=== PATIENT | female | born 1975 | race Caucasian/White ===

== ENCOUNTER 2020-08-07 12:13 | Emergency (ER) | payer OTHER, MEDICAID, SELFPAY ==
[2020-08-07 12:29] VITALS: BP 150/89; PULSE 79; RESP 18; TEMP 37.2; O2SAT 100; BMI 38.3
--- NOTE | 2020-08-07 12:32 | ED.LOWEXIN ---
HPI - Extremity Injury (Lower) General Chief Complaint: Extremity Injury, Lower Stated Complaint: Rt knee pain Time Seen by Provider: 08/07/20 12:31 Source: patient Mode of arrival: ambulatory Limitations: no limitations History of Present Illness HPI Narrative: 45 year old cassandra comes into ER with LE injury. Fell early this week, c/o pain to Right Knee and Left Ankle. She is ambulatory, but states weight bearing and any ROM is difficult. 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, went ot work this week after her fall and has noticed as the week has gone by that her pain is worse and weight bearing is almost impossible Onset (ago): day(s) (worseing over the past 2-3 days) Severity: mild (superficial) Severity scale (1-10): 2 Related Data Previous Rx's Medication Instructions Recorded naproxen [Naprosyn] 500 mg PO BID PRN #30 tab 08/07/20 prednisone 30 mg PO BID 5 Days #30 tab 08/07/20 Allergies Allergy/AdvReac Type Severity Reaction Status Date / Time No Known Allergies Allergy Verified 08/07/20 12:32 Review of Systems Constitutional: Constitutional: Reports fever(s) (subjective), Denies headache(s) and Denies weakness Eyes: Eyes: Denies change in vision and Denies eye pain ENT: Reports Normal hearing present, Denies headache(s) and Denies sore throat Cardiovascular: Cardiovascular: Denies chest pain, Denies palpitations and Denies dyspnea Respiratory: Respiratory: Denies chest congestion, Denies cough, Denies dyspnea and Denies wheezing Gastrointestinal: Gastrointestinal: Denies abdominal pain, Denies change in bowel habits, Denies constipation, Denies diarrhea, Denies nausea and Denies vomiting Genitourinary: Genitourinary: Denies urinary frequency, Denies dysuria, Denies flank pain and Denies urinary incontinence Musculoskeletal: Musculoskeletal: Reports abnormal gait (right knee pain), Denies back pain, Denies myalgias, Reports arthralgias, Denies muscle weakness, Reports radiating pain into limb (right knee, left ankle) and Reports stiffness Integumentary/Breasts: Skin/Breast: Denies change in hair, Denies pruritus, Denies erythema, Denies rash, Denies unusual bruising and Denies wounds Neurologic: Reports Normal hearing present, Reports Abnormal speech present, Reports abnormal gait (right knee pain), Denies headache(s), Denies memory loss, Denies paresthesias, Denies tremor(s) and Denies weakness Psychiatric: Psychiatric: Denies anxiety, Denies depression, Denies irritability and Denies memory loss Endocrine: Endocrine: Denies change in body appearance and Denies palpitations Hematologic/Lymphatic: Hematologic/Lymphatic: Denies easy bleeding, Denies easy bruising and Denies lymphadenopathy Allergic/Immunologic: Allergic/Immunologic: Denies wheezing [facility] [place] Social History Social History Advance Directives: No Advance Directives Information Provided: Yes Physical Exam Vital Signs: Vital Signs: Last Vital Signs Temp 99.0 F 08/07/20 12:29 Pulse 79 08/07/20 12:29 Resp 18 08/07/20 12:29 BP 150/89 H 08/07/20 12:29 Pulse Ox 100 08/07/20 12:29 Body Mass Index 38.3 Const: General: cooperative, healthy appearing, comfortable, no acute distress, well developed, alert, awake and well groomed Nutritional Appearance: average body habitus Orientation/consciousness: patient oriented x3 Limitations: no limitations HENMT: Head: Yes normal to inspection Ears: hearing grossly normal bilaterally, external ears normal, TM's normal bilaterally, mastoids normal and other (FROM MASS NOTED AT TMJ AREA, TENDER TO PALPATION. NO ERYTHEMA, NO DRAINAGE) Eyes: General: appearance normal, both eyes and all related structures Neck: Other: FIRM MASS NOTED AT RIGHT TMJ REGION, TENDER TO PALPATION Neck: Yes full ROM, Yes no meningeal signs, Yes trachea midline, Yes supple, Yes bilateral parotid enlargement, No lymphadenopathy and Yes tender Thyroid: Thyroid normal Lymphatic: no lymphadenopathy noted Chest: Chest palpation & inspection: normal inspection of the chest and normal palpation of entire chest wall Resp: Effort & Inspection: normal respiratory effort and able to speak in complete sentences Auscultation: clear to auscultation bilaterally, no crackles, no rales, no rhonchi and no wheezes Cardio: Rate: regular rate Rhythm: regular rhythm GI: Inspection: Yes normal to inspection : General: Yes no CVA tenderness Back/Spine/Pelvis: Back: no CVA tenderness Cervical Spine: normal cervical lordosis and cervical ROM normal Thoracic/Lumbar Spine: thoracic and lumbar spine normal to inspection Skin: General skin exam: no rashes or lesions noted Lesions: no lesions Rashes: no rashes Neuro: General: patient oriented x3 and no meningeal signs Cranial nerves: Yes Normal hearing present Cognition (Neuro): normal cognition Speech: Abnormal speech present Gait exam (Neuro): Normal gait present Motor exam (neuro): 5/5 motor strength present throughout Sensory Exam: Normal double simultaneous stimulation for sensation Extrem: General: No full ROM, No normal gait (limping gait), No calf tenderness, Yes edema (left ankle with mild ecchymosis) and Yes Limp noted Psych: Appearance: grossly normal Mental Status: mental status grossly normal Speech and movement: Normal speech and movement present Affect: normal affect Attitude: cooperative Thought process: Normal thought process present Thought content: Normal thought content present Insight: Good insight present (Psych) Judgement: Good judgement present (Psych) Course Course Course Narrative: 45 yeaer old with pain during ambulation to left ankle and right knee s/p fall. Xrays pending MDM - Extremity Injury (Lower) Imaging Data Knee x-ray: Radiologist's impression: [address] [address] XRay Report Signed Patient: Nikki RenMR#: [id number] : 1975Acct:[id number] Age/Sex: 45 / FADM Date: 08/07/20 Loc: .ED Attending Dr: Ordering Physician: BETY WATSON Date of Service: 08/07/20 Procedure(s): XR knee RT 4V Accession Number(s): [id number] cc: BETY WATSON~ EXAMINATION: XR knee RT 4V, XR ankle LT min 3V CLINICAL INFORMATION: Status post fall with pain and swelling. COMPARISON: None. TECHNIQUE: Right knee 4 views. Left ankle 3 views. FINDINGS: RIGHT KNEE: No fracture or other acute abnormality is seen. No joint effusion is evident. Moderate to severe degenerative changes are present in the lateral compartment with moderate degenerative changes in the medial and patellofemoral compartments. LEFT ANKLE: No fracture, malalignment or other bony abnormality. No joint effusion. Spurring is seen on the posterior aspect of the calcaneus at the insertion of the Achilles tendon and plantar fascia. XR/XR knee RT 4V IMPRESSION: 1. Degenerative changes right knee with no acute abnormality demonstrated. 2. Unremarkable left ankle. Dictated By:Hamzah BRENNER MD Signed By:<Electronically signed by Hamzah BRENNER MD in OV>08/07/20 1357 DD/ 1245 TD/TT: Clinical Support Nurse: FELIPA Discharge Plan Discharge Clinical Impression: Ankle sprain and strain, Knee sprain, Osteoarthritis Patient Disposition: Home, Self-Care Instructions: Ankle Sprain (ED), Knee Sprain (ED) Additional Instructions: Please see your PCP for referral to [facility] for management of your Osteoarthritis if pain continues Prescriptions: New prednisone 10 mg tablet 30 mg PO BID 5 Days Qty: 30 RF: 0 naproxen [Naprosyn] 500 mg tablet 500 mg PO BID PRN (Reason: pain) Qty: 30 RF: 0
--- NOTE | 2020-08-07 12:44 | PC.NURSE ---
SEEN BY MLP AT THIS TIME
--- NOTE | 2020-08-07 12:45 | XR_ITS ---
EXAMINATION: XR knee RT 4V, XR ankle LT min 3V CLINICAL INFORMATION: Status post fall with pain and swelling. COMPARISON: None. TECHNIQUE: Right knee 4 views. Left ankle 3 views. FINDINGS: RIGHT KNEE: No fracture or other acute abnormality is seen. No joint effusion is evident. Moderate to severe degenerative changes are present in the lateral compartment with moderate degenerative changes in the medial and patellofemoral compartments. LEFT ANKLE: No fracture, malalignment or other bony abnormality. No joint effusion. Spurring is seen on the posterior aspect of the calcaneus at the insertion of the Achilles tendon and plantar fascia. XR/XR ankle LT min 3V IMPRESSION: 1. Degenerative changes right knee with no acute abnormality demonstrated. 2. Unremarkable left ankle.
--- NOTE | 2020-08-07 12:45 | XR_ITS ---
EXAMINATION: XR knee RT 4V, XR ankle LT min 3V CLINICAL INFORMATION: Status post fall with pain and swelling. COMPARISON: None. TECHNIQUE: Right knee 4 views. Left ankle 3 views. FINDINGS: RIGHT KNEE: No fracture or other acute abnormality is seen. No joint effusion is evident. Moderate to severe degenerative changes are present in the lateral compartment with moderate degenerative changes in the medial and patellofemoral compartments. LEFT ANKLE: No fracture, malalignment or other bony abnormality. No joint effusion. Spurring is seen on the posterior aspect of the calcaneus at the insertion of the Achilles tendon and plantar fascia. XR/XR knee RT 4V IMPRESSION: 1. Degenerative changes right knee with no acute abnormality demonstrated. 2. Unremarkable left ankle.
== END 2020-08-07 14:23 | disposition home or self-care (01) ==
PROVIDERS: Emergency Provider Emergency Medicine; PCP Internal Medicine
DX: M17.0 Bilateral primary osteoarthritis of knee (principal); M25.562 Pain in left knee; M25.561 Pain in right knee; M25.572 Pain in left ankle and joints of left foot; M25.571 Pain in right ankle and joints of right foot; Z79.899 Other long term (current) drug therapy
CPT/HCPCS: 73564; 73610; 99283

== ENCOUNTER 2020-12-13 14:16 | Inpatient (IN) | payer SELFPAY ==
[2020-12-13] VITALS (12 sets, daily range): BP systolic 148–193; BP diastolic 80–112; PULSE 74–103; RESP 14–22; TEMP 36.4–37.2; O2SAT 95–99; BMI 86.3; BMI 38.6
--- NOTE | ~2020-12-13 | CT_ITS ---
EXAMINATION: CT ABDOMEN AND PELVIS WITH CONTRAST CLINICAL INFORMATION: abd pain worsening; pancreatitis COMPARISON: 12/13/2020 TECHNIQUE: Multidetector volumetric images were obtained from the superior aspect of the liver through the pubic symphysis following administration 85 mL of Omnipaque 350 intravenous contrast. Sagittal and coronal reformatted images were obtained on the technologist's workstation. Oral contrast: No This CT examination was performed using dose optimization techniques as appropriate, variously including the following: *Automated exposure control *Adjustment of mA and/or kV according to patient size (this includes techniques or standardized protocols for targeted exams where dose is matched to indication/reason for exam; i.e. extremities or head) *Use of iterative reconstruction technique DLP: 882 mGy-cm FINDINGS: LUNG BASES: The visualized lung bases are unremarkable. LIVER, GALLBLADDER, AND BILIARY TREE: Relative hypoattenuation of the hepatic parenchyma is consistent with steatosis, similar to prior. Liver is enlarged, measuring 21 cm craniocaudal. Contour is normal. No focal bony lesions are identified. The gallbladder is unremarkable with no evidence of radiopaque gallstones, gallbladder wall thickening, or obvious pericholecystic inflammatory changes. PANCREAS: As seen on the recent CT, there is decreased enhancement of the pancreatic body and head with surrounding fat stranding, consistent with acute pancreatitis. The fat stranding and inflammatory changes in the mesentery. Increased as compared to prior. The fat stranding extends distally with trace fluid in the right anterior pararenal fascia as on the prior study. No discrete fluid collections. There is increased mass effect upon the adjacent main portal vein and superior mesenteric vein (coronal image 41/102 of series 7) as well as mild narrowing of the splenic vein near the amol splenic confluence. No occlusion. SPLEEN: Unremarkable. ADRENAL GLANDS: Unremarkable. KIDNEYS AND URETERS: The kidneys are normal in size, shape, and attenuation. No hydronephrosis, hydroureter, or calculi seen. No perinephric stranding. BLADDER: Unremarkable. GASTROINTESTINAL TRACT: Stomach, small bowel, and colon are normal in caliber. No bowel wall thickening. Trace fluid in the pelvis dependently. No intraperitoneal free air. ABDOMINAL WALL: No significant hernia is appreciated. LYMPH NODES: Normal. VASCULAR: As noted above, inflammatory changes around the pancreas producing increased mass effect upon the SMV, portal vein, and splenic vein without occlusion or thrombosis. Abdominal aorta and its branches are normal. PELVIC VISCERA: The uterus and adnexa are unremarkable. OSSEOUS STRUCTURES: Mild degenerative spondylosis in the lumbar spine. No acute osseous abnormalities. CT/CT abdomen pelvis w con IMPRESSION: Acute pancreatitis with increased peripancreatic inflammatory changes with the prior. There is increased mass effect on the portal vasculature with mild narrowing of the SMV, main portal vein, and splenic vein around the portosplenic confluence. No thrombosis or occlusion. Hepatic steatosis.
--- NOTE | ~2020-12-13 | CT_ITS ---
EXAMINATION: CT ABDOMEN AND PELVIS WITH CONTRAST CLINICAL INFORMATION: Abdominal pain, nausea and vomiting COMPARISON: None TECHNIQUE: Multidetector volumetric images were obtained from the superior aspect of the liver through the pubic symphysis following administration 100 mL of Omnipaque 350 intravenous contrast. Sagittal and coronal reformatted images were obtained on the technologist's workstation. Oral contrast: Yes This CT examination was performed using dose optimization techniques as appropriate, variously including the following: *Automated exposure control *Adjustment of mA and/or kV according to patient size (this includes techniques or standardized protocols for targeted exams where dose is matched to indication/reason for exam; i.e. extremities or head) *Use of iterative reconstruction technique DLP: 1284 mGy-cm FINDINGS: LUNG BASES: The visualized lung bases are unremarkable. LIVER, GALLBLADDER, AND BILIARY TREE: The liver is low in attenuation suggestive of fatty infiltration. Liver is normal in contour and size. No focal liver lesion is seen. The gallbladder is normal-appearing. There are no gallstones. There is no intra extrahepatic biliary duct dilatation. PANCREAS: There is decreased enhancement of the head and body of the pancreas and stranding of the surrounding fat and a small amount of fluid in the right anterior pararenal fascia and small bowel mesentery. Findings are suggestive of acute pancreatitis. No pancreatic duct dilatation is seen. SPLEEN: There is a small 8 mm low-attenuation lesion in the inferior spleen probably representing a cyst.. ADRENAL GLANDS: Unremarkable. KIDNEYS AND URETERS: The kidneys are normal in size, shape, and attenuation. No hydronephrosis, hydroureter, or calculi seen. No perinephric stranding. BLADDER: Unremarkable. GASTROINTESTINAL TRACT: The small and large bowel are unremarkable. The appendix is unremarkable. ABDOMINAL WALL: No significant hernia is appreciated. LYMPH NODES: Normal. VASCULAR: Unremarkable. PELVIC VISCERA: Unremarkable. OSSEOUS STRUCTURES: There are mild degenerative changes of the spine. CT/CT abdomen pelvis w con IMPRESSION: Acute pancreatitis. Fatty liver.
[2020-12-13] MEDS: HYDROmorphone HCl 1 MG/ML SYRINGE IM (14:58)
--- NOTE | 2020-12-13 15:04 | ED.ABDPAIN ---
HPI - Abdominal Pain General Chief Complaint: Abdominal Pain Stated Complaint: ABD PAIN Time Seen by Provider: 12/13/20 14:31 Source: patient Mode of arrival: ambulatory Limitations: no limitations History of Present Illness HPI narrative: 45 y/o female with history of HTN, daily ETOH abuse, daily IV heroin abuse who presents to the ED with acute onset of 10/10 sharp abdominal pain associated with nausea and vomiting. She has never had abdominal pain like this before. It is non-radiating and in the center of her abdomen and epigastric areas. Her back hurts when she lays down. She states she drank her usual whiskey last night, maybe too much but would quantify aside from a lot. She states her last IV heroin use was yesterday. She bought some methadone from a friend and took that today. She used to be in a methadone program but lost her insurance last year. She has been drinking daily for the last 5 years or so. No history of withdrawal. No fever, chills, diarrhea, constipation, cough, SOB or chest pain. MD elicited complaint: abdominal pain Onset (ago): hour(s) (5) Pain Consistency: constant Location: epigastric and periumbilical Severity: severe Pain scale (0-10): 10 Quality: stabbing and sharp Radiation: none Migration to: no migration Exacerbating factors: vomiting Relieving factors: nothing Associated symptoms: nausea and vomiting Related Data Previous Rx's Medication Instructions Recorded naproxen [Naprosyn] 500 mg PO BID PRN #30 tab 08/07/20 prednisone 30 mg PO BID 5 Days #30 tab 08/07/20 Allergies Allergy/AdvReac Type Severity Reaction Status Date / Time No Known Allergies Allergy Verified 12/13/20 14:36 Review of Systems Review of Systems Constitutional: No Fever, No Chills ENT/Mouth: No sore throat, No Rhinorrhea, No Swallowing Difficulty Eyes: No Eye Pain, No Swelling, No Redness Cardiovascular: No Chest Pain, No SOB, No Orthopnea, No Edema Respiratory: No Cough, No Sputum, No Wheezing, No dyspnea Gastrointestinal: + Nausea,+ Vomiting, No Diarrhea, + abdominal Pain, No Hematochezia, No Melena Genitourinary: No Dysuria, No Urinary Frequency, No Hematuria Musculoskeletal: + joint pain, + Myalgias Skin: No Skin Lesions, No rash Neuro: No Weakness, No Numbness, No Dizziness, No Headache Psych: + Anxiety/Panic, + Depression Heme/Lymph: No Bruising, No Lymphadenopathy Endocrine: No Polyuria, No Polydipsia Physical Exam Vital Signs: Vital Signs: Last Vital Signs Temp 97.7 F 12/13/20 14:30 Pulse 83 12/13/20 14:30 Resp 22 H 12/13/20 16:47 BP 158/92 H 12/13/20 14:30 Pulse Ox 99 12/13/20 14:30 Body Mass Index 86.3 Appearance: middle aged female dry heaving and vomiting at the side of the bed, appears uncomfortable and in pain Eyes: Pupils equal, round and reactive to light. ENT: Normal external inspection Neck: Normal inspection. Neck supple. CVS: Normal heart rate and rhythm. Pulses normal. Respiratory: No respiratory distress. Breath sounds normal. Abdomen: Obese, soft with epigastric and periumbilical tenderness, mild RUQ tenderness without rebound or guarding. +BS x4 Skin: Skin cool and clammy. Normal skin color. Normal skin turgor. No rashes. Extremities: No lower extremity edema. Bilateral upper extremities with track quick and ecchymosis consistent with hx IVDA Neuro: Oriented X 3. Moving all 4 extremities spontaneously, unable to assess strength/sensation due to vomiting & severe pain Course Course Course Narrative: 45 y/o female with history of ETOH and heroin abuse presenting with acute onset of epigastric abdominal pain, nausea and vomiting. Last drink was last night. Concern for alcohol induced pancreatitis. Will get labs and CT scan for further evaluation. Difficult IV access - IM meds ordered for now. US PIV to be attempted now. Reevaluation(s) Reevaluation #1: Lipase elevated 1200 with lactic acid 3.4. Likely due to dehydation and vomiting, NOT sepsis. No leukocytosis or fevers. CT scan pending to assess for necrosis, pseudocyst or fluid collection. Will hold off on IV antibiotics for now. 2L IVF ordered as well as additional dilaudid for pain control. Patient informed of results and need for admission to the hospital. Reevaluation #2: CT scan showing acute pancreatitis. No GB stones. Spoke with Elenita Hernández who will admit to the hospital. MDM - Abdominal Pain Lab Data Result diagrams: 12/13/20 15:10 12/13/20 15:10 Labs: Lab Results 12/13/20 12/13/20 12/13/20 Range/Units 15:10 15:10 15:10 WBC 10.2 (4.8-10.8) X10*3/uL RBC 5.03 (4.20-5.50) X10*6/uL Hgb 15.5 (12.0-16.0) g/dl Hct 46.3 (37-47) % MCV 92.0 (80-98) fL MCH 30.8 (27.0-33.0) pg MCHC 33.5 (31.0-35.0) g/dl RDW 13.0 (11.0-16.0) % Plt Count 144 L (160-400) X10*3/uL MPV 13.7 H (9.4-12.3) fL Immature Gran % (Auto) 0.4 (0.0-0.4) % Neut % (Auto) 77.3 H (45-73) % Lymph % (Auto) 15.8 L (20-40) % [place] % (Auto) 3.9 (2-11) % Eos % (Auto) 2.0 (0-4) % Baso % (Auto) 0.6 (0-2) % Lymph # (Auto) 1.6 (1.2-4.9) X10*3/uL [place] # (Auto) 0.4 (0.1-1.2) X10*3/uL Eos # (Auto) 0.2 (0.0-0.4) X10*3/uL Baso # (Auto) 0.1 (0.0-0.2) X10*3/uL Abs Immat Gran (auto) 0.04 H (0.00-0.03) X10*3/uL Absolute Neuts (auto) 7.9 (2.0-8.3) X10*3/uL Absolute Nucleated RBC 0.000 (0.0-0.012) X10*3/uL Nucleated RBC % (auto) 0.0 (0.0-0.2) /100WBC Smear Tech's Comments VERIFIED Sodium 139 (135-145) mmol/L Potassium 3.9 (3.3-5.1) mmol/L Chloride 97 (96-108) mmol/L Carbon Dioxide 27 (22-29) mmol/L Anion Gap 19 (12-20) BUN 15 (9-16) mg/dL Creatinine 1.00 (0.5-1.4) mg/dL Estim Creat Clear Calc 150.4 Estimated GFR 59 Random Glucose 146 H (60-115) mg/dL Lactic Acid 3.4 H* (0.5-2.0) mmol/L Calcium 9.5 (8.4-10.2) mg/dL Magnesium 1.7 (1.6-2.6) mg/dL Total Bilirubin 0.8 (0.0-1.0) mg/dL Direct Bilirubin 0.2 (0.0-0.5) mg/dL AST 61 H (5-31) U/L ALT 48 H (0-31) U/L Alkaline Phosphatase 83 (39-117) U/L Lactate Dehydrogenase 150 (122-220) U/L C-Reactive Protein 0.86 H (< or = 0.50) mg/dL Total Protein 7.6 (6.5-8.0) g/dL Albumin 4.2 (3.5-5.0) g/dL Lipase 1254 H (8-78) U/L Ethyl Alcohol mg/dL 12/13/20 Range/Units 15:10 WBC (4.8-10.8) X10*3/uL RBC (4.20-5.50) X10*6/uL Hgb (12.0-16.0) g/dl Hct (37-47) % MCV (80-98) fL MCH (27.0-33.0) pg MCHC (31.0-35.0) g/dl RDW (11.0-16.0) % Plt Count (160-400) X10*3/uL MPV (9.4-12.3) fL Immature Gran % (Auto) (0.0-0.4) % Neut % (Auto) (45-73) % Lymph % (Auto) (20-40) % [place] % (Auto) (2-11) % Eos % (Auto) (0-4) % Baso % (Auto) (0-2) % Lymph # (Auto) (1.2-4.9) X10*3/uL [place] # (Auto) (0.1-1.2) X10*3/uL Eos # (Auto) (0.0-0.4) X10*3/uL Baso # (Auto) (0.0-0.2) X10*3/uL Abs Immat Gran (auto) (0.00-0.03) X10*3/uL Absolute Neuts (auto) (2.0-8.3) X10*3/uL Absolute Nucleated RBC (0.0-0.012) X10*3/uL Nucleated RBC % (auto) (0.0-0.2) /100WBC Smear Tech's Comments Sodium (135-145) mmol/L Potassium (3.3-5.1) mmol/L Chloride (96-108) mmol/L Carbon Dioxide (22-29) mmol/L Anion Gap (12-20) BUN (9-16) mg/dL Creatinine (0.5-1.4) mg/dL Estim Creat Clear Calc Estimated GFR Random Glucose (60-115) mg/dL Lactic Acid (0.5-2.0) mmol/L Calcium (8.4-10.2) mg/dL Magnesium (1.6-2.6) mg/dL Total Bilirubin (0.0-1.0) mg/dL Direct Bilirubin (0.0-0.5) mg/dL AST (5-31) U/L ALT (0-31) U/L Alkaline Phosphatase (39-117) U/L Lactate Dehydrogenase (122-220) U/L C-Reactive Protein (< or = 0.50) mg/dL Total Protein (6.5-8.0) g/dL Albumin (3.5-5.0) g/dL Lipase (8-78) U/L Ethyl Alcohol < 10 mg/dL Critical Care Time Critical Care Time Critical Care Time: Yes Total Critical Care Time: 40 Attestation: I attest critical care time for this patient with acute pancreatitis, lactic acidosis and severe abdominal pain requiring multiple doses of IV narcotics - frequent reassessment of cardiopulmonary status and pain. Records and imaging reviewed. Discharge Plan Discharge Clinical Impression: Pancreatitis Qualifiers: Chronicity: acute Pancreatitis type: alcohol induced Acute pancreatitis complication: unspecified Qualified Code(s): K85.20 - Alcohol induced acute pancreatitis without necrosis or infection Patient Disposition: Admitted As Inpatient [facility] Past Medical History Medical History Alcohol abuse HTN (hypertension) Opiate addiction Social History Social History Alcohol intake: current Alcohol intake frequency: 3 or more drinks per day Alcohol type: hard liquor Smoking Status: Never smoker Use of substances other than those prescribed or required for medical reasons: Yes Substance Use Type: Crack/Cocaine and Heroin Advance Directives: No Advance Directives Information Provided: No
[2020-12-13] MEDS: 0.9 % Sodium Chloride 1,000 ML 999 ML IVCONT (15:15)
[2020-12-13 15:23] LABS: Imm Gran Abs Auto 0.04 X10*3/uL (0.00-0.03); Imm Gran Pct Auto 0.4 % (0.0-0.4); MANUAL DIFF FLAG SCAN; Monocytes Percent Auto 3.9 % (2-11); Platelet Count 144 X10*3/uL (160-400); SCAN SMEAR FLAG 1
[2020-12-13 15:25] LABS: Basophils Absolute Auto 0.1 X10*3/uL (0.0-0.2); Basophils Percent Auto 0.6 % (0-2); Eosinophils Absolute Auto 0.2 X10*3/uL (0.0-0.4); Hematocrit 46.3 % (37-47); Hemoglobin 15.5 g/dl (12.0-16.0); Lymphocytes Absolute Auto 1.6 X10*3/uL (1.2-4.9); Lymphocytes Percent Auto 15.8 % (20-40); Mean Corpuscular HGB Conc 33.5 g/dl (31.0-35.0); Mean Corpuscular Hemoglobin 30.8 pg (27.0-33.0); Mean Platelet Volume 13.7 fL (9.4-12.3); Monocytes Absolute Auto 0.4 X10*3/uL (0.1-1.2); Neutrophils Absolute Auto 7.9 X10*3/uL (2.0-8.3); Neutrophils Percent Auto 77.3 % (45-73); Red Blood Count 5.03 X10*6/uL (4.20-5.50); White Blood Count 10.2 X10*3/uL (4.8-10.8)
[2020-12-13] MEDS: LORazepam 2 MG/ML VIAL IVPUSH (15:28)
[2020-12-13 15:29] LABS: PLT ABN DIST 1
[2020-12-13 15:46] LABS: Lactic Acid 3.4 mmol/L (0.5-2.0)
[2020-12-13 15:51] LABS: SLIDE REVIEW VERIFIED
[2020-12-13 15:54] LABS: Ethanol < 10 mg/dL
[2020-12-13 16:07] LABS: Alanine Aminotransferase 48 U/L (0-31); Albumin Level 4.2 g/dL (3.5-5.0); Alkaline Phosphatase 83 U/L (39-117); Anion Gap 19 (12-20); Aspartate Amino Transferase 61 U/L (5-31); Bilirubin Direct 0.2 mg/dL (0.0-0.5); Bilirubin Total 0.8 mg/dL (0.0-1.0); Blood Urea Nitrogen 15 mg/dL (9-16); Calcium 9.5 mg/dL (8.4-10.2); Carbon Dioxide 27 mmol/L (22-29); Chloride 97 mmol/L (96-108); Creatinine Clr Calc Pharmacy 150.4; Estimated Glomerular Filt Rate 59; Glucose Random 146 mg/dL (60-115); Magnesium 1.7 mg/dL (1.6-2.6); Potassium 3.9 mmol/L (3.3-5.1); Sodium 139 mmol/L (135-145); Total Protein 7.6 g/dL (6.5-8.0)
[2020-12-13 16:17] LABS: Lipase 1254 U/L (8-78)
[2020-12-13] MEDS: iohexoL 350 MG/ML 100 ML INFUS..BTL IV (16:30)
[2020-12-13 16:39] LABS: C Reactive Protein 0.86 mg/dL (< or = 0.50)
[2020-12-13] MEDS: HYDROmorphone HCl 1 MG/ML SYRINGE IVPUSH (16:47)
[2020-12-13 16:59] LABS: Lactate Dehydrogenase 150 U/L (122-220)
[2020-12-13 17:15] LABS: Reflex Lactate? Lactic Acid Added
[2020-12-13] MEDS: Magnesium Sulfate/D5W 1 GM/100 ML PIGGYBACK IV (17:15)
[2020-12-13 17:21] LABS: Glucose Urine UA NEG (NEG); Leukocyte Esterase Urine NEG (NEG); Nitrite Urine NEG (NEG); Specific Gravity - Urine 1.015 (1.005-1.025); Urine Blood NEG (NEG); Urine Ketones NEG (NEG); Urine Protein NEG (NEG-TRACE)
[2020-12-13 17:22] LABS: Appearance Urine CLEAR; Color Urine COLORLESS
--- NOTE | 2020-12-13 17:30 | PM.IMHP ---
History of Present Illness Date of Service: 12/13/20 Chief Complaint: Abdominal pain 45-year-old woman presented to the ER complaints of abdominal pain that started yesterday. She reports that her symptoms started abruptly. She did have some nausea and an episode vomiting today. She reports that she drinks 3-4 glasses whiskey a day and uses 1 bundle of heroin day. She denied fever, chills, diarrhea. She denies any history of pancreatitis in the past. In the ER, abdominal CT showed acute pancreatitis with a liver. AST 61, ALT 48, lipase 1254. COVID negative. in the ER she was started on phenobarbital protocol, given 1 g of IV magnesium, 2 L of IV fluids, pain medication. Patient will be admitted for further management treatment of acute pancreatitis. Review of Systems Review of Systems: Denies any recent fever chills or decrease in appetite respiratory denies any shortness of breath coverage production cardiovascular is adjustment of any PND or edema gastrointestinal See HPI genitourinary denies any dysuria frequency or hematuria musculoskeletal denies any joint pain or swelling neuropsych denies any weakness or seizures all other systems reviewed are negative [facility] Medical History Alcohol abuse HTN (hypertension) Opiate addiction Social History Alcohol intake: current Alcohol intake frequency: 3 or more drinks per day Alcohol type: hard liquor Smoking Status: Never smoker Use of substances other than those prescribed or required for medical reasons: Yes Substance Use Type: Crack/Cocaine and Heroin Advance Directives: No Advance Directives Information Provided: No Meds Allergies Allergy/AdvReac Type Severity Reaction Status Date / Time No Known Allergies Allergy Verified 12/13/20 14:36 Active Medications: Current Medications Generic Name Dose Route Start Last Admin Trade Name Freq PRN Reason Stop Dose Admin Magnesium Sulfate/Dextrose 1 gm in 100 mls @ 100 mls/hr 12/13/20 17:02 12/13/20 17:15 IV 12/13/20 18:01 100 mls/hr ONCE ONE Administration Pharmacy Consult 1 each 12/13/20 16:54 Consult Rx Etoh Phenob Dosing MISCELLANE 12/13/20 16:55 ONCE ONE Protocol Home Medications Medication Instructions Recorded Confirmed Last Taken Type No Known Home Meds 12/13/20 12/13/20 Unknown History Physical Exam Vital Signs and Narrative: Vital Signs: Last Vital Signs Temp 97.8 F 12/13/20 17: Pulse 74 12/13/20 17: Resp 18 12/13/20 17: BP 189/112 H 12/13/20 17:21 Pulse Ox 97 12/13/20 17:21 Body Mass Index 86.3 Appearing in no acute distress head is normocephalic atraumatic eyes pupils are PERRLA sclera is anicteric mouth throat mucous membranes are intact and moist neck is supple no lymphadenopathy, no JVD noted lung sounds are clear to auscultation heart regular rate rhythm, clear S1, S2 positive bowel sounds, abdomen tender, obese neuro patient is alert x3, no focal deficits Results Labs CBC and Chem 7: 12/13/20 15:10 12/13/20 15:10 Labs: Laboratory Results - last 24 hr 12/13/20 12/13/20 12/13/20 15:10 15:10 15:10 MCV 92.0 MCH 30.8 MCHC 33.5 RDW 13.0 Plt Count 144 L MPV 13.7 H Immature Gran % (Auto) 0.4 Neut % (Auto) 77.3 H Lymph % (Auto) 15.8 L [place] % (Auto) 3.9 Eos % (Auto) 2.0 Baso % (Auto) 0.6 Lymph # (Auto) 1.6 [place] # (Auto) 0.4 Eos # (Auto) 0.2 Baso # (Auto) 0.1 Abs Immat Gran (auto) 0.04 H Absolute Neuts (auto) 7.9 Absolute Nucleated RBC 0.000 Nucleated RBC % (auto) 0.0 Smear Tech's Comments VERIFIED Anion Gap 19 Estim Creat Clear Calc 150.4 Estimated GFR 59 Random Glucose 146 H Lactic Acid 3.4 H* Calcium 9.5 Magnesium 1.7 Total Bilirubin 0.8 Direct Bilirubin 0.2 AST 61 H ALT 48 H Alkaline Phosphatase 83 Lactate Dehydrogenase 150 C-Reactive Protein 0.86 H Total Protein 7.6 Albumin 4.2 Lipase 1254 H Urine Color Urine Appearance Urine pH Ur Specific [place] Urine Protein Urine Glucose (UA) Urine Ketones Urine Blood Urine Nitrite Ur Leukocyte Esterase Ethyl Alcohol 12/13/20 12/13/20 15:10 17:05 MCV MCH MCHC RDW Plt Count MPV Immature Gran % (Auto) Neut % (Auto) Lymph % (Auto) [place] % (Auto) Eos % (Auto) Baso % (Auto) Lymph # (Auto) [place] # (Auto) Eos # (Auto) Baso # (Auto) Abs Immat Gran (auto) Absolute Neuts (auto) Absolute Nucleated RBC Nucleated RBC % (auto) Smear Tech's Comments Anion Gap Estim Creat Clear Calc Estimated GFR Random Glucose Lactic Acid Calcium Magnesium Total Bilirubin Direct Bilirubin AST ALT Alkaline Phosphatase Lactate Dehydrogenase C-Reactive Protein Total Protein Albumin Lipase Urine Color COLORLESS Urine Appearance CLEAR Urine pH 8.0 Ur Specific [place] 1.015 Urine Protein NEG Urine Glucose (UA) NEG Urine Ketones NEG Urine Blood NEG Urine Nitrite NEG Ur Leukocyte Esterase NEG Ethyl Alcohol < 10 Imaging Radiologist's Impressions: Impressions Abdomen/Pelvis CT 12/13/20 14:47 IMPRESSION: Acute pancreatitis. Fatty liver. Assessment and Plan (1) Pancreatitis: Qualifiers: Acute pancreatitis complication: unspecified Chronicity: acute Pancreatitis type: alcohol induced Qualified Code(s): K85.20 - Alcohol induced acute pancreatitis without necrosis or infection Status: Acute 45-year-old woman admitted with acute pancreatitis with history of chronic alcohol abuse and heroin abuse. Patient developed abdominal pain yesterday with an episode of vomiting today, she denied history of pancreatitis in the past however she does drink quite heavily every day. She has also high risk for withdrawal and will be started on phenobarbital protocol. Acute pancreatitis. Secondary to heavy alcohol abuse. Drinks 3-4 glasses of whiskey on a daily basis. - aggressive IV fluid hydration with lactated Ringer's - pain medication - NPO for now, advance diet as tolerated. Hypertension. Patient reports history but not on any home medications. Received a dose of labetalol in the ER due to elevated blood pressure. Elevated blood pressures also related to pain. -consider adding antihypertensive -follow blood pressure closely. Transaminitis. Likely secondary to go alcohol abuse. -follow LFTs. Lactic acidosis. Likely secondary to alcohol abuse/dehydration. - trend, IV fluids. Alcohol abuse. -phenobarbital protocol Heroin abuse. Interested in Suboxone. -Consult Carmen Arias nurse-practitioner Obesity. BMI 86.3. Discussed the importance of weight reduction to avoid worsening other comorbidities. Case discussed with Dr. Miller Full code
[2020-12-13] MEDS: Labetalol HCL 100 MG/20 ML VIAL 10 MG IVPUSH (17:37)
[2020-12-13 17:43] LABS: COVID-19 Test Negative (Negative); IDNOW Serial# 9DD0AD1C
[2020-12-13 17:47] LABS: Amphetamine Screen Urine Not Detected (Not Detect); Barbiturates, Urine Not Detected (Not Detect); Benzodiazepines Screen Urine Not Detected (Not Detect); Cannabinoid Screen Urine Not Detected (Not Detect); Cocaine Screen Urine POSITIVE (Not Detect); Opiate Screen Urine Not Detected (Not Detect); Phencyclidine Screen Urine Not Detected (Not Detect)
[2020-12-13] MEDS: PHENobarbitaL sodium 130 MG/ML VIAL 197 MG IM (17:56)
[2020-12-13 18:05] LABS: ~Lactic Acid-LAB USE ONLY 2.6 mmol/L (0.5-2.0)
[2020-12-13] MEDS: Morphine Sulfate 4 MG/ML CARTRIDGE 2 MG IVPUSH ×2 (18:28→22:52)
[2020-12-13] MEDS: Lactated Ringers 1,000 ML 200 ML IVCONT (18:36)
[2020-12-13] MEDS: Enoxaparin Sodium 40 MG/0.4 ML SYRINGE SUBCUT (18:55)
--- NOTE | 2020-12-13 18:57 | P.EN_ITS ---
Event Note Date of Service: 12/14/20 Event Note: addendum to H+P by JOSSELYN Hernández I interviewed and examined the patient. I discussed their presentation and management with the mid-level provider. I reviewed the history and physical and agree with the documentation, with the following additions and corrections: 45yo F with EtOH + heroin abuse presenting with 1d of worsening periumbilical pain, found to have acute pancreatitis, no prior hx on exam, BP 190/103, lungs clear, marked periumbilical/epigastric tenderness, zero Watton's criteria on admission plan admit to M/S, give IV fluids, IV morphine prn pain, consult psych re: suboxone (pt prev on methadone but then lost insurance)
[2020-12-13 19:38] LABS: Reflex Lactate? 2 Y
[2020-12-13 20:21] LABS: ~Lactic Acid-LAB USE ONLY 2.6 mmol/L (0.5-2.0)
--- NOTE | 2020-12-13 20:30 | PC.NURSE ---
Tried to call report to [facility]. Awaiting phonecall back.
--- NOTE | 2020-12-13 20:41 | PC.NURSE ---
report called to Yanely [facility]
[2020-12-13] MEDS: oxyCODONE HCl Immed Release 5 MG TABLET PO (21:56)
[2020-12-13] MEDS: PHENobarbitaL sodium 130 MG/ML VIAL 148 MG IM (21:57)
[2020-12-13] MEDS: Melatonin 3 MG TABLET 6 MG PO (22:59)
[2020-12-14] VITALS (7 sets, daily range): BP systolic 158–206; BP diastolic 86–102; PULSE 78–88; RESP 18–20; TEMP 36.2–37.4; O2SAT 95–98; BMI 38.6
[2020-12-14] MEDS: Lactated Ringers 1,000 ML 200 ML IVCONT ×4 (00:12→17:40)
[2020-12-14] MEDS: PHENobarbitaL sodium 130 MG/ML VIAL 148 MG IM (00:42)
[2020-12-14] MEDS: Morphine Sulfate 4 MG/ML CARTRIDGE 2 MG IVPUSH ×3 (02:33→09:21)
[2020-12-14] MEDS: oxyCODONE HCl Immed Release 5 MG TABLET PO ×2 (04:37→11:04)
[2020-12-14] MEDS: Acetaminophen 325 MG TABLET 650 MG PO (04:42)
[2020-12-14 07:32] LABS: Basophils Percent Auto 0.1 % (0-2); Eosinophils Percent Auto 0.1 % (0-4); Hematocrit 41.5 % (37-47); Imm Gran Abs Auto 0.07 X10*3/uL (0.00-0.03); Imm Gran Pct Auto 0.5 % (0.0-0.4); Lymphocytes Absolute Auto 0.7 X10*3/uL (1.2-4.9); Lymphocytes Percent Auto 4.8 % (20-40); MANUAL DIFF FLAG SCAN; Mean Corpuscular HGB Conc 33.7 g/dl (31.0-35.0); Mean Corpuscular Volume 91.8 fL (80-98); Monocytes Absolute Auto 0.6 X10*3/uL (0.1-1.2); Monocytes Percent Auto 4.2 % (2-11); Neutrophils Absolute Auto 12.9 X10*3/uL (2.0-8.3); Neutrophils Percent Auto 90.3 % (45-73); Platelet Count 113 X10*3/uL (160-400); Red Blood Count 4.52 X10*6/uL (4.20-5.50); Red Cell Distribution Width 13.1 % (11.0-16.0); SCAN SMEAR FLAG 1; White Blood Count 14.3 X10*3/uL (4.8-10.8)
[2020-12-14 07:53] LABS: Alanine Aminotransferase 34 U/L (0-31); Albumin Level 3.7 g/dL (3.5-5.0); Alkaline Phosphatase 73 U/L (39-117); Anion Gap 15 (12-20); Aspartate Amino Transferase 36 U/L (5-31); Bilirubin Direct 0.5 mg/dL (0.0-0.5); Bilirubin Total 1.6 mg/dL (0.0-1.0); Blood Urea Nitrogen 9 mg/dL (9-16); Calcium 8.4 mg/dL (8.4-10.2); Carbon Dioxide 26 mmol/L (22-29); Chloride 96 mmol/L (96-108); Creatinine Clr Calc Pharmacy 124.6; Estimated Glomerular Filt Rate > 60; Glucose Random 127 mg/dL (60-115); Potassium 3.9 mmol/L (3.3-5.1); Sodium 133 mmol/L (135-145); Total Protein 6.5 g/dL (6.5-8.0)
[2020-12-14 07:59] LABS: SLIDE REVIEW VERIFIED
[2020-12-14 08:23] LABS: Magnesium 1.8 mg/dL (1.6-2.6)
[2020-12-14] MEDS: PHENobarbitaL 15 MG TABLET 45 MG PO ×2 (09:04→20:07)
[2020-12-14] MEDS: 0.9 % Sodium Chloride Flush 3 ML SYRINGE IVFLUSH ×3 (09:06→20:08)
[2020-12-14] MEDS: Morphine Sulfate 4 MG/ML CARTRIDGE IVPUSH ×3 (11:46→15:52)
--- NOTE | 2020-12-14 13:08 | PC.NURSE ---
Pt. with 07/10 abd. pain, increased dose and frequency of IV Morphine, Morphine seems to help but pt. constantly asking for it to be given early, new IV placed in L forearm, LR @ 200mL/hr, pt. OOB with standby assist, will continue to monitor
--- NOTE | 2020-12-14 13:24 | P.PNIM_ITS ---
Subjective Subjective Date of Service: 12/14/20 Interval History: severe abd pain no N/V BP elevated no chest pain Physical Exam Vital Signs: Vital Signs: Last Vital Signs Temp 99.3 F 12/14/20 07:56 Pulse 87 12/14/20 07:56 Resp 19 12/14/20 07:56 BP 156/84 H 12/13/20 23:45 Pulse Ox 95 12/14/20 07:56 Body Mass Index 38.6 Gen: in pain HEENT: sclera anicteric, moist mucus membranes Neck: supple Lungs: clear to auscultation bilaterally Heart: regular rate and rhythm, no murmurs Abd: soft, markedly tender epigastrium Ext: no edema Skin: warm/well-perfused Neuro: alert and oriented x3, no focal findings Psych: appropriate affect Objective Data Current Medications Generic Name Dose Route Start Last Admin Trade Name Freq PRN Reason Stop Dose Admin Acetaminophen 650 mg 12/13/20 17:59 12/14/20 04:42 Acetaminophen 325 Mg Tablet PO 650 mg Q6H PRN Administration Pain, Mild (Pain Scale 1-3) Enoxaparin Sodium 40 mg 12/13/20 18:45 12/13/20 18:55 Enoxaparin Sodium 40 Mg/0.4 Ml Syringe SUBCUT 40 mg Q24H MICH Administration Lactated Ringer's 1,000 mls @ 200 mls/hr 12/13/20 18:00 12/14/20 11:48 Lr IVCONT 200 mls/hr .Q5H MICH Administration Medication 1 each 12/13/20 17:45 No Benzodiazepines MISCELLANE DAILY MICH Melatonin 6 mg 12/13/20 21:48 12/13/20 22:59 Melatonin 3 Mg Tablet PO 6 mg BEDTIME PRN Administration Insomnia Morphine Sulfate 4 mg 12/14/20 11:10 12/14/20 11:46 Morphine Sulfate 4 Mg/Ml Cartridge IVPUSH 4 mg Q2H PRN Administration Pain, Severe (Pain Scale 7-10) Oxycodone HCl 10 mg 12/14/20 11:11 Oxycodone Hcl Immed Release 5 Mg Tablet PO Q6H PRN Pain, Severe (Pain Scale 7-10) Phenobarbital 45 mg 12/14/20 09:00 12/14/20 09:04 Phenobarbital 15 Mg Tablet PO 12/15/20 21:01 45 mg BID MICH Administration Phenobarbital 15 mg 12/16/20 09:00 Phenobarbital 15 Mg Tablet PO 12/17/20 21:01 BID MICH Phenobarbital 15 mg 12/18/20 09:00 Phenobarbital 15 Mg Tablet PO 12/19/20 09:01 DAILY MICH Sodium Chloride 3 ml 12/14/20 00:00 12/14/20 09:06 0.9 % Sodium Chloride Flush 3 Ml Syringe IVFLUSH 3 ml QSHIFT MICH Administration Labs CBC & Chem 7: 12/14/20 07:10 12/14/20 07:10 Labs: Laboratory Results - last 24 hr 12/13/20 12/13/20 12/13/20 15:10 15:10 15:10 WBC 10.2 RBC 5.03 Hgb 15.5 Hct 46.3 MCV 92.0 MCH 30.8 MCHC 33.5 RDW 13.0 Plt Count 144 L MPV 13.7 H Immature Gran % (Auto) 0.4 Neut % (Auto) 77.3 H Lymph % (Auto) 15.8 L Faulk % (Auto) 3.9 Eos % (Auto) 2.0 Baso % (Auto) 0.6 Lymph # (Auto) 1.6 Faulk # (Auto) 0.4 Eos # (Auto) 0.2 Baso # (Auto) 0.1 Abs Immat Gran (auto) 0.04 H Absolute Neuts (auto) 7.9 Absolute Nucleated RBC 0.000 Nucleated RBC % (auto) 0.0 Smear Tech's Comments VERIFIED Sodium 139 Potassium 3.9 Chloride 97 Carbon Dioxide 27 Anion Gap 19 BUN 15 Creatinine 1.00 Estim Creat Clear Calc 150.4 Estimated GFR 59 Random Glucose 146 H Lactic Acid 3.4 H* Lactic Acid Fup @ 2Hr Lactic Acid Fup @ 4Hr Calcium 9.5 Magnesium 1.7 Total Bilirubin 0.8 Direct Bilirubin 0.2 AST 61 H ALT 48 H Alkaline Phosphatase 83 Lactate Dehydrogenase 150 C-Reactive Protein 0.86 H Total Protein 7.6 Albumin 4.2 Lipase 1254 H Urine Color Urine Appearance Urine pH Ur Specific [place] Urine Protein Urine Glucose (UA) Urine Ketones Urine Blood Urine Nitrite Ur Leukocyte Esterase Urine Opiates Screen Ur Barbiturates Screen Ur Phencyclidine Scrn Ur Amphetamines Screen U Benzodiazepines Scrn Urine Cocaine Screen U Marijuana (THC) Screen Ethyl Alcohol COVID-19 (JUAN) COVID-19 Clin Com 12/13/20 12/13/20 12/13/20 15:10 17:05 17:05 WBC RBC Hgb Hct MCV MCH MCHC RDW Plt Count MPV Immature Gran % (Auto) Neut % (Auto) Lymph % (Auto) Faulk % (Auto) Eos % (Auto) Baso % (Auto) Lymph # (Auto) Faulk # (Auto) Eos # (Auto) Baso # (Auto) Abs Immat Gran (auto) Absolute Neuts (auto) Absolute Nucleated RBC Nucleated RBC % (auto) Smear Tech's Comments Sodium Potassium Chloride Carbon Dioxide Anion Gap BUN Creatinine Estim Creat Clear Calc Estimated GFR Random Glucose Lactic Acid Lactic Acid Fup @ 2Hr Lactic Acid Fup @ 4Hr Calcium Magnesium Total Bilirubin Direct Bilirubin AST ALT Alkaline Phosphatase Lactate Dehydrogenase C-Reactive Protein Total Protein Albumin Lipase Urine Color COLORLESS Urine Appearance CLEAR Urine pH 8.0 Ur Specific [place] 1.015 Urine Protein NEG Urine Glucose (UA) NEG Urine Ketones NEG Urine Blood NEG Urine Nitrite NEG Ur Leukocyte Esterase NEG Urine Opiates Screen Not Detected Ur Barbiturates Screen Not Detected Ur Phencyclidine Scrn Not Detected Ur Amphetamines Screen Not Detected U Benzodiazepines Scrn Not Detected Urine Cocaine Screen POSITIVE H U Marijuana (THC) Screen Not Detected Ethyl Alcohol < 10 COVID-19 (JUAN) COVID-19 [employer] 12/13/20 12/13/20 12/13/20 17:08 17:30 19:48 WBC RBC Hgb Hct MCV MCH MCHC RDW Plt Count MPV Immature Gran % (Auto) Neut % (Auto) Lymph % (Auto) [place] % (Auto) Eos % (Auto) Baso % (Auto) Lymph # (Auto) Faulk # (Auto) Eos # (Auto) Baso # (Auto) Abs Immat Gran (auto) Absolute Neuts (auto) Absolute Nucleated RBC Nucleated RBC % (auto) Smear Tech's Comments Sodium Potassium Chloride Carbon Dioxide Anion Gap BUN Creatinine Estim Creat Clear Calc Estimated GFR Random Glucose Lactic Acid Lactic Acid Fup @ 2Hr 2.6 H* Lactic Acid Fup @ 4Hr 2.6 H* Calcium Magnesium Total Bilirubin Direct Bilirubin AST ALT Alkaline Phosphatase Lactate Dehydrogenase C-Reactive Protein Total Protein Albumin Lipase Urine Color Urine Appearance Urine pH Ur Specific [place] Urine Protein Urine Glucose (UA) Urine Ketones Urine Blood Urine Nitrite Ur Leukocyte Esterase Urine Opiates Screen Ur Barbiturates Screen Ur Phencyclidine Scrn Ur Amphetamines Screen U Benzodiazepines Scrn Urine Cocaine Screen U Marijuana (THC) Screen Ethyl Alcohol COVID-19 (JUAN) Negative COVID-19 Clin Com See Note 12/14/20 12/14/20 07:10 07:10 WBC 14.3 H RBC 4.52 Hgb 14.0 Hct 41.5 MCV 91.8 MCH 31.0 MCHC 33.7 RDW 13.1 Plt Count 113 L MPV Not Reportable Immature Gran % (Auto) 0.5 H Neut % (Auto) 90.3 H Lymph % (Auto) 4.8 L Fa[place] % (Auto) 4.2 Eos % (Auto) 0.1 Baso % (Auto) 0.1 Lymph # (Auto) 0.7 L [place] # (Auto) 0.6 Eos # (Auto) 0.0 Baso # (Auto) 0.0 Abs Immat Gran (auto) 0.07 H Absolute Neuts (auto) 12.9 H Absolute Nucleated RBC 0.000 Nucleated RBC % (auto) 0.0 Smear Tech's Comments VERIFIED Sodium 133 L Potassium 3.9 Chloride 96 Carbon Dioxide 26 Anion Gap 15 BUN 9 Creatinine 0.72 Estim Creat Clear Calc 124.6 Estimated GFR > 60 Random Glucose 127 H Lactic Acid Lactic Acid Fup @ 2Hr Lactic Acid Fup @ 4Hr Calcium 8.4 D Magnesium 1.8 Total Bilirubin 1.6 H Direct Bilirubin 0.5 AST 36 H D ALT 34 H Alkaline Phosphatase 73 Lactate Dehydrogenase C-Reactive Protein Total Protein 6.5 Albumin 3.7 Lipase Urine Color Urine Appearance Urine pH Ur Specific [place] Urine Protein Urine Glucose (UA) Urine Ketones Urine Blood Urine Nitrite Ur Leukocyte Esterase Urine Opiates Screen Ur Barbiturates Screen Ur Phencyclidine Scrn Ur Amphetamines Screen U Benzodiazepines Scrn Urine Cocaine Screen U Marijuana (THC) Screen Ethyl Alcohol COVID-19 (JUAN) COVID-19 Clin Com Assessment and Plan (1) Pancreatitis: Status: Acute Assessment and Plan: hospital d#2 45yo F with hx EtOH + heroin abuse admitted for 1st episode of acute pancreatitis # EtOH pancreatitis, acute - zero Ambia's criteria on admission- good prognosis; continue aggressive IV fluid hydration + prn morphine and keep NPO # EtOH abuse with high risk for withdrawal - phenobarbital taper, vitamins, counseling # HTN urgency - will start amlodipine 5 mg daily # opioid abuse - psychiatry consult re: Suboxone/MAT initiation # VTE ppx - LMWH
[2020-12-14] MEDS: amLODIPine Besylate 5 MG TABLET PO (13:53)
[2020-12-14] MEDS: oxyCODONE HCl Immed Release 5 MG TABLET 10 MG PO ×3 (15:12→21:46)
--- NOTE | 2020-12-14 15:59 | HO.ADDICTCON ---
History of Present Illness Date of Service: 12/14/2020 Chief Complaint: Pancreatitis Reason for Consult: opioid use disorder Requesting physician: Elenita Hernández Discussed with referring provider: No Sources of Information: patient interviewed and chart reviewed HPI Narrative: Patient is a 45 year old female currently medically admitted with acute pancreatitis secondary to alcohol use disorder. Consult requested as patient reported that she was also using heroin daily. Patient seen in room 377. She was awake, alert, engaged in interview. Visibly uncomfortable as she shifted positions in the bed. Patient reports that she has struggled with substance use for 9-10 years. She reports her longest period in recovery was about a year. She denies any history ats (detox) admissions. Denies any history of overdose. Reports she was on methadone for 7 years up until October of 2019 when her insurance changed and for some reason she was unable to continue at the [facility]. she reports that for the last year she has been using about 5 bags of heroin intranasally or intravenously a day, she also reports that she occasionally well use methadone that is prescribed to a friend of hers. When asked about the dose of methadone she reports that she does not know, but that she uses less than a small cap full 2-3 times per week. Somewhat challenging to obtain information from patient as she somewhat minimized/generalized amounts and frequency of substance use. She does identify that her alcohol use is a significant issue, and reports that she would like to stop especially given her family history of alcohol use disorder (mother and father both reportedly passed of alcohol-related illnesses). Past Psychiatric History: Patient reports history of behavioral health treatment, however does not wish to discuss at this time. 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, has been with the same client for 10 years Review of Systems Constitutional: Reports body ache(s) and Reports malaise Psychiatric: Reports abnormal sleep pattern, Reports anxiety and Denies depression Diagnostics Vital Signs (24Hr): Vital Signs - 24 hr 12/13/20 16:47 12/13/20 17:21 12/13/20 17:37 Temperature 97.8 F Pulse Rate 74 81 Respiratory Rate 22 H 18 Blood Pressure 189/112 H 193/104 H Pulse Oximetry 97 12/13/20 18:16 12/13/20 18:28 12/13/20 19:52 Temperature Pulse Rate 84 85 Respiratory Rate 16 17 14 Blood Pressure 190/103 H Pulse Oximetry 97 97 12/13/20 21:00 12/13/20 22:52 12/13/20 23:45 Temperature 98.9 F Pulse Rate 103 H Respiratory Rate 20 18 Blood Pressure 160/80 H 156/84 H Pulse Oximetry 95 12/14/20 02:33 12/14/20 06:32 12/14/20 07:56 Temperature 99.3 F Pulse Rate 87 Respiratory Rate 20 18 19 Blood Pressure Pulse Oximetry 95 12/14/20 13:43 12/14/20 15:42 Temperature 97.4 F Pulse Rate 78 Respiratory Rate 18 Blood Pressure 158/86 H 206/102 H Pulse Oximetry 96 Body Mass Index 38.6 Labs Results: 12/14/20 07:10 12/14/20 07:10 Labs: Laboratory Results - last 48 hr 12/13/20 12/13/20 12/13/20 15:10 15:10 15:10 WBC 10.2 RBC 5.03 Hgb 15.5 Hct 46.3 MCV 92.0 MCH 30.8 MCHC 33.5 RDW 13.0 Plt Count 144 L MPV 13.7 H Immature Gran % (Auto) 0.4 Neut % (Auto) 77.3 H Lymph % (Auto) 15.8 L [place] % (Auto) 3.9 Eos % (Auto) 2.0 Baso % (Auto) 0.6 Lymph # (Auto) 1.6 [place] # (Auto) 0.4 Eos # (Auto) 0.2 Baso # (Auto) 0.1 Abs Immat Gran (auto) 0.04 H Absolute Neuts (auto) 7.9 Absolute Nucleated RBC 0.000 Nucleated RBC % (auto) 0.0 Smear Tech's Comments VERIFIED Sodium 139 Potassium 3.9 Chloride 97 Carbon Dioxide 27 Anion Gap 19 BUN 15 Creatinine 1.00 Estim Creat Clear Calc 150.4 Estimated GFR 59 Random Glucose 146 H Lactic Acid 3.4 H* Lactic Acid Fup @ 2Hr Lactic Acid Fup @ 4Hr Calcium 9.5 Magnesium 1.7 Total Bilirubin 0.8 Direct Bilirubin 0.2 AST 61 H ALT 48 H Alkaline Phosphatase 83 Lactate Dehydrogenase 150 C-Reactive Protein 0.86 H Total Protein 7.6 Albumin 4.2 Lipase 1254 H Urine Color Urine Appearance Urine pH Ur Specific [place] Urine Protein Urine Glucose (UA) Urine Ketones Urine Blood Urine Nitrite Ur Leukocyte Esterase Urine Opiates Screen Ur Barbiturates Screen Ur Phencyclidine Scrn Ur Amphetamines Screen U Benzodiazepines Scrn Urine Cocaine Screen U Marijuana (THC) Screen Ethyl Alcohol COVID-19 (JUAN) COVID-19 [employer] 12/13/20 12/13/20 12/13/20 15:10 17:05 17:05 WBC RBC Hgb Hct MCV MCH MCHC RDW Plt Count MPV Immature Gran % (Auto) Neut % (Auto) Lymph % (Auto) [place] % (Auto) Eos % (Auto) Baso % (Auto) Lymph # (Auto) [place] # (Auto) Eos # (Auto) Baso # (Auto) Abs Immat Gran (auto) Absolute Neuts (auto) Absolute Nucleated RBC Nucleated RBC % (auto) Smear Tech's Comments Sodium Potassium Chloride Carbon Dioxide Anion Gap BUN Creatinine Estim Creat Clear Calc Estimated GFR Random Glucose Lactic Acid Lactic Acid Fup @ 2Hr Lactic Acid Fup @ 4Hr Calcium Magnesium Total Bilirubin Direct Bilirubin AST ALT Alkaline Phosphatase Lactate Dehydrogenase C-Reactive Protein Total Protein Albumin Lipase Urine Color COLORLESS Urine Appearance CLEAR Urine pH 8.0 Ur Specific [place] 1.015 Urine Protein NEG Urine Glucose (UA) NEG Urine Ketones NEG Urine Blood NEG Urine Nitrite NEG Ur Leukocyte Esterase NEG Urine Opiates Screen Not Detected Ur Barbiturates Screen Not Detected Ur Phencyclidine Scrn Not Detected Ur Amphetamines Screen Not Detected U Benzodiazepines Scrn Not Detected Urine Cocaine Screen POSITIVE H U Marijuana (THC) Screen Not Detected Ethyl Alcohol < 10 COVID-19 (JUAN) COVID-19 [employer] 12/13/20 12/13/20 12/13/20 17:08 17:30 19:48 WBC RBC Hgb Hct MCV MCH MCHC RDW Plt Count MPV Immature Gran % (Auto) Neut % (Auto) Lymph % (Auto) [place] % (Auto) Eos % (Auto) Baso % (Auto) Lymph # (Auto) [place] # (Auto) Eos # (Auto) Baso # (Auto) Abs Immat Gran (auto) Absolute Neuts (auto) Absolute Nucleated RBC Nucleated RBC % (auto) Smear Tech's Comments Sodium Potassium Chloride Carbon Dioxide Anion Gap BUN Creatinine Estim Creat Clear Calc Estimated GFR Random Glucose Lactic Acid Lactic Acid Fup @ 2Hr 2.6 H* Lactic Acid Fup @ 4Hr 2.6 H* Calcium Magnesium Total Bilirubin Direct Bilirubin AST ALT Alkaline Phosphatase Lactate Dehydrogenase C-Reactive Protein Total Protein Albumin Lipase Urine Color Urine Appearance Urine pH Ur Specific [place] Urine Protein Urine Glucose (UA) Urine Ketones Urine Blood Urine Nitrite Ur Leukocyte Esterase Urine Opiates Screen Ur Barbiturates Screen Ur Phencyclidine Scrn Ur Amphetamines Screen U Benzodiazepines Scrn Urine Cocaine Screen U Marijuana (THC) Screen Ethyl Alcohol COVID-19 (JUAN) Negative COVID-19 Clin Com See Note 12/14/20 12/14/20 07:10 07:10 WBC 14.3 H RBC 4.52 Hgb 14.0 Hct 41.5 MCV 91.8 MCH 31.0 MCHC 33.7 RDW 13.1 Plt Count 113 L MPV Not Reportable Immature Gran % (Auto) 0.5 H Neut % (Auto) 90.3 H Lymph % (Auto) 4.8 L [place] % (Auto) 4.2 Eos % (Auto) 0.1 Baso % (Auto) 0.1 Lymph # (Auto) 0.7 L [place] # (Auto) 0.6 Eos # (Auto) 0.0 Baso # (Auto) 0.0 Abs Immat Gran (auto) 0.07 H Absolute Neuts (auto) 12.9 H Absolute Nucleated RBC 0.000 Nucleated RBC % (auto) 0.0 Smear Tech's Comments VERIFIED Sodium 133 L Potassium 3.9 Chloride 96 Carbon Dioxide 26 Anion Gap 15 BUN 9 Creatinine 0.72 Estim Creat Clear Calc 124.6 Estimated GFR > 60 Random Glucose 127 H Lactic Acid Lactic Acid Fup @ 2Hr Lactic Acid Fup @ 4Hr Calcium 8.4 D Magnesium 1.8 Total Bilirubin 1.6 H Direct Bilirubin 0.5 AST 36 H D ALT 34 H Alkaline Phosphatase 73 Lactate Dehydrogenase C-Reactive Protein Total Protein 6.5 Albumin 3.7 Lipase Urine Color Urine Appearance Urine pH Ur Specific [place] Urine Protein Urine Glucose (UA) Urine Ketones Urine Blood Urine Nitrite Ur Leukocyte Esterase Urine Opiates Screen Ur Barbiturates Screen Ur Phencyclidine Scrn Ur Amphetamines Screen U Benzodiazepines Scrn Urine Cocaine Screen U Marijuana (THC) Screen Ethyl Alcohol COVID-19 (JUAN) COVID-19 Clin Com Imaging Radiology Impressions: ITS Impressions Abdomen/Pelvis CT 12/13/20 14:47 IMPRESSION: Acute pancreatitis. Fatty liver. Mental Status Exam Mental Status Exam Patient Appearance: Appropriate Patient Orientation: Person, Place, Time and Situation Level of Consciousness: Awake, Appropriate and Alert Patient Behavior: Appropriate and Guarded Mood Description: Calm Affect Description: Calm Patient Cognition Impaired: No Ability to Follow Directions: Excellent Speech Pattern: Clear Memory Description: Intact Hallucinations: None Delusions: Not Present Thought Process: Intact and Goal Oriented Thought Content: positive for Intact and positive for Goal Oriented Depressive Symptoms: Increased Anxiety, Difficulty Sleeping and Feelings of Guilt Judgement: Fair Medications Medications Current Medications Generic Name Dose Route Start Last Admin Trade Name Freq PRN Reason Stop Dose Admin Acetaminophen 650 mg 12/13/20 17:59 12/14/20 04:42 Acetaminophen 325 Mg Tablet PO 650 mg Q6H PRN Administration Pain, Mild (Pain Scale 1-3) Amlodipine Besylate 5 mg 12/14/20 13:30 12/14/20 13:53 Amlodipine Besylate 5 Mg Tablet PO 5 mg DAILY MICH Administration Protocol Enoxaparin Sodium 40 mg 12/13/20 18:45 12/13/20 18:55 Enoxaparin Sodium 40 Mg/0.4 Ml Syringe SUBCUT 40 mg Q24H MICH Administration Lactated Ringer's 1,000 mls @ 200 mls/hr 12/13/20 18:00 12/14/20 11:48 Lr IVCONT 200 mls/hr .Q5H MICH Administration Medication 1 each 12/13/20 17:45 No Benzodiazepines MISCELLANE DAILY [facility] Melatonin 6 mg 12/13/20 21:48 12/13/20 22:59 Melatonin 3 Mg Tablet PO 6 mg BEDTIME PRN Administration Insomnia Morphine Sulfate 4 mg 12/14/20 11:10 12/14/20 15:52 Morphine Sulfate 4 Mg/Ml Cartridge IVPUSH 4 mg Q2H PRN Administration Pain, Severe (Pain Scale 7-10) Oxycodone HCl 10 mg 12/14/20 11:11 12/14/20 15:14 Oxycodone Hcl Immed Release 5 Mg Tablet PO 10 mg Q6H PRN Administration Pain, Severe (Pain Scale 7-10) Phenobarbital 45 mg 12/14/20 09:00 12/14/20 09:04 Phenobarbital 15 Mg Tablet PO 12/15/20 21:01 45 mg BID MICH Administration Phenobarbital 15 mg 12/16/20 09:00 Phenobarbital 15 Mg Tablet PO 12/17/20 21:01 BID MICH Phenobarbital 15 mg 12/18/20 09:00 Phenobarbital 15 Mg Tablet PO 12/19/20 09:01 DAILY MICH Sodium Chloride 3 ml 12/14/20 00:00 12/14/20 09:06 0.9 % Sodium Chloride Flush 3 Ml Syringe IVFLUSH 3 ml QSHIFT [facility] Administration Allergies Allergies Allergy/AdvReac Type Severity Reaction Status Date / Time No Known Allergies Allergy Verified 12/13/20 14:36 Assessment & Plan Assessment & Plan (1) Opioid use disorder: Status: Acute Code(s): F11.99 - Opioid use, unspecified with unspecified opioid-induced disorder Recommendations: patient verbalized only wanting buprenorphine for OUD. 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 suboxone induction while inpatient--based on patient's reported used of methadone (Sunday being the last day), Pm or would be ideally the earliest we consider buprenorphien start Will continue to follow Greater than 50% of the session was spent on counseling and/or coordination of care [facility] Past Medical History Medical History Alcohol abuse HTN (hypertension) Opiate addiction Psychiatric History: Substance Abuse History (as reported in HPI) Family History Pertinent family history: mother and father with AUD Social History Social History (Updated 12/14/20 @ 16:12 by Carmen Arias CNP) Household Members: Spouse Housing: Apartment Do you presently have visiting nurse or other home services: No Alcohol intake: current Alcohol intake frequency: 3 or more drinks per day Alcohol type: hard liquor Smoking Status: Former smoker Use of substances other than those prescribed or required for medical reasons: Yes Substance Use Type: Crack/Cocaine, Heroin and Opiates Substance Use Frequency: Daily Currently Displaying Signs/Symptoms of Drug Intoxication Withdrawal: No Have you been hit, kicked, punched, or otherwise hurt by someone within the past year? If so, by whom?: No Do you feel safe in your current relationship?: Yes Is there a partner from a previous relationship who is making you feel unsafe now?: No Are you made to feel afraid or neglected: No Advance Directives: No Advance Directives Information Provided: No Do you have thoughts of harming others: None Do you have a plan to hurt others: No Plan Recently lost weight without trying: No
[2020-12-14] MEDS: HYDROmorphone HCl 1 MG/ML SYRINGE IVPUSH ×2 (16:48→20:08)
[2020-12-14] MEDS: Enoxaparin Sodium 40 MG/0.4 ML SYRINGE SUBCUT (17:35)
[2020-12-14] MEDS: hydrOXYzine HCL 50 MG TABLET PO ×2 (17:35→23:30)
[2020-12-14] MEDS: Melatonin 3 MG TABLET 6 MG PO (21:47)
[2020-12-15 00:07] VITALS: RESP 18
[2020-12-15] MEDS: HYDROmorphone HCl 1 MG/ML SYRINGE IVPUSH ×9 (00:07→22:14)
[2020-12-15] MEDS: Lactated Ringers 1,000 ML 200 ML IVCONT ×5 (00:07→21:19)
[2020-12-15] MEDS: oxyCODONE HCl Immed Release 5 MG TABLET 10 MG PO ×4 (02:20→21:20)
--- NOTE | 2020-12-15 02:25 | PC.NURSE ---
0130: Patient complaining of 10/10 abdominal pain. I gave PRN 1mg Dilaudid an hour prior, patient states it has already stopped working and her pain is not being effectively managed. Patient is also receiving PRN Oxycodone HCI 10mg Q6H, PRN Atarax 50mg Q6H and is on Pheno protocol. Patient is restless, grimacing and groaning in bed. I notified Dr Evans, he ordered an abdominal CT with contrast and stated to give her pain medication early. Patient has PRN Oxycodone HCI 10mg Q6H ordered, given early at 0220. Patient just taken down to get abdominal CT.
--- NOTE | 2020-12-15 03:17 | PM.EVENT ---
Event Note Date of Service: 12/15/20 Event Note: Pancreatitis: Patient has increased abdominal pain overnight; Repeat CT abdomen pelvis showed pancreatitis with increased peripancreatic inflammatory changes with the prior. There is increased mass effect on the portal vasculature with mild narrowing of the SMV, main portal vein, and splenic vein around the portosplenic confluence. No thrombosis or occlusion. Continue pain management. Will also consult GI for further recommendations.
[2020-12-15 03:58] VITALS: RESP 20
[2020-12-15] MEDS: hydrOXYzine HCL 50 MG TABLET PO ×2 (05:32→11:31)
[2020-12-15 07:06] LABS: Basophils Percent Auto 0.2 % (0-2); Hematocrit 47.8 % (37-47); Hemoglobin 16.4 g/dl (12.0-16.0); Imm Gran Abs Auto 0.26 X10*3/uL (0.00-0.03); Imm Gran Pct Auto 1.1 % (0.0-0.4); Lymphocytes Absolute Auto 0.6 X10*3/uL (1.2-4.9); Lymphocytes Percent Auto 2.6 % (20-40); MANUAL DIFF FLAG SCAN; Mean Corpuscular HGB Conc 34.3 g/dl (31.0-35.0); Mean Corpuscular Hemoglobin 30.8 pg (27.0-33.0); Mean Corpuscular Volume 89.8 fL (80-98); Mean Platelet Volume 14.1 fL (9.4-12.3); Monocytes Absolute Auto 0.9 X10*3/uL (0.1-1.2); Monocytes Percent Auto 3.7 % (2-11); Neutrophils Absolute Auto 22.7 X10*3/uL (2.0-8.3); Neutrophils Percent Auto 92.4 % (45-73); Platelet Count 112 X10*3/uL (160-400); Red Cell Distribution Width 12.8 % (11.0-16.0); SCAN SMEAR FLAG 1; White Blood Count 24.5 X10*3/uL (4.8-10.8)
[2020-12-15 07:08] LABS: Red Blood Count 5.32 X10*6/uL (4.20-5.50)
[2020-12-15 07:32] VITALS: BP 179/90; PULSE 84; RESP 19; TEMP 36.8; O2SAT 98
[2020-12-15 07:37] LABS: Alanine Aminotransferase 26 U/L (0-31); Albumin Level 4.1 g/dL (3.5-5.0); Alkaline Phosphatase 93 U/L (39-117); Anion Gap 15 (12-20); Aspartate Amino Transferase 28 U/L (5-31); Bilirubin Total 2.2 mg/dL (0.0-1.0); Blood Urea Nitrogen 5 mg/dL (9-16); Carbon Dioxide 27 mmol/L (22-29); Chloride 93 mmol/L (96-108); Creatinine Clr Calc Pharmacy 128.1; Estimated Glomerular Filt Rate > 60; Glucose Random 137 mg/dL (60-115); Potassium 3.4 mmol/L (3.3-5.1); Sodium 132 mmol/L (135-145); Total Protein 7.5 g/dL (6.5-8.0)
[2020-12-15] MEDS: PHENobarbitaL 15 MG TABLET 45 MG PO ×2 (08:05→21:19)
[2020-12-15] MEDS: 0.9 % Sodium Chloride Flush 3 ML SYRINGE IVFLUSH (08:05)
[2020-12-15] MEDS: amLODIPine Besylate 5 MG TABLET 10 MG PO (08:05)
[2020-12-15 08:14] LABS: SLIDE REVIEW VERIFIED
--- NOTE | 2020-12-15 09:21 | MHC.CM.PN ---
NURSE HEALTH POLICY ANALYST NOTE LATE ENTRY FROM 12/14/20 ELECTRONIC MEDICAL RECORD REVIEWED ALONG WITH CASE DISCUSSED WITH STAFF NURSE AND ON MULTIPLE DISCIPLINARY ROUNDS MET WITH PATIENT AND SHE REPORTED TO ME THAT SHE LIVES WITH HER (WHOM IS DISABLED) SHE WAS EMPLOYED AND LOST HER JOB IN 2019 SINCE THEN SHE HAS NOT BEEN MONICA TO ATTEND HER METHADONE CLINIC IN [facility]. OR RECEIVE MENTAL HEALTH COUNSELING. SHE HAS NO PCP. SHE CONTINUES TO CONSUME ETOH (HARD LIQUOR ) 2-3 DRINKS [place] (SHSE DENIES EVER FALLING, OR HAVING LOC OR SEIZURES RELATED T HER ETOH CONSUMPTION , SHE ALSO DENIES JASON ETOH WITHDRAWAL SYMPTOMS. SHE ALSO REPORTED THAT SHE USES CRACK, COCAINE AND IV/SNORTS HEROIN LAST USED DAY BEFORE COMING TO THE HOSPITAL , SHE REPORTED THAT SHE BEGAN TO HAVE INTENSE ABDOMINAL AND BACK PAIN AND SHE WAS GIVEN SOME METHADONE BY A FRIEND , THE PAIN PERSISTED AND SHE CAME TO THE EMERGENCY ROOM , HER ABS SHOWED COVID -19 NEGATIVE, ETOH<10 AND POSITIVE FOR COCAINE. WE DISCUSSED THE IMPORTANCE OF GETTING HER ON INSURANCE , THEN CHOOSING A PLAN AND PICKING A PCP ON THIS HOSPITLA ADMISSION . IMITATED REFERRAL TO [facility]OE STITCHER FOR POSSIBLE MEDICATION MANAGEMENT FOR BOTH ETOH AND SUBSATNCE ABUSE VARE TEAM TIGER MESSAGE CONTACT FROM [facility] WITH [facility] FINANCIAL COUNSELORS, PATIENT IS A CONNECTOR CARE MEMBER AND THEY COMPLETED HER ENROLLMENT INTO THE [facility] [employer] EFFECTIVE 12/30/20 , THERE IS NO COVERAGE FOR THIS HOSPITAL ADMISSION AND SHE IS NOT ELIGEABLE FOR THE TEMPORARY MEDICAL HSN. patient agreed the retro connector coverage., INFORMED [facility] N[facility]SE SHOE STITCHER DISCHARGE PLAN PER RECOMMENDATIONS BY CARES TEAM AND NURSE RETAIL SECURITY PROFESSIONAL TRANSPORTATION [facility] FINANCIAL COUNSELORS FOR FURTHER FOLLOW UP NEEDED . PATIENT TO PICK PCP ON THIS HOSPITAL ADMISSION OR SOON SHE RECIVES HER INSURANCE CARD .
--- NOTE | 2020-12-15 09:40 | P.CNGI_ITS ---
History of Present Illness Data of Consult Service Date: 12/15/20 Requesting physician: Froylan Miller Primary Care Provider: Sarah Mary MD HPI Reason for consult: pancreatitis 45-year-old woman w hx of alcohol abuse and drug use who I am seeing for assessment for acute pancreatitis. She has been drinking alcohol daily for 5 yrs (pint of whiskey) or so due to issues with insomnia as well as heroin usage as well. She noticed abrupt nset of severe 10/10 epigastric pain along with nausea and non bloody emesis so came to the ED. labs with raised lipase and imaging with acute pancreatitis. She denied fever, chills, diarrhea. She denied any history of pancreatitis in the past. Her sx got worse night before and she had repeat CT with eliane panceatic swelling and abuttment of adjacent vessels but no clots were seen. She still has pain and requires dilaudid for relief. Review of Systems Review of Systems: Denies any recent fever chills or decrease in appetite respiratory denies any shortness of breath coverage production cardiovascular is adjustment of any PND or edema gastrointestinal See HPI genitourinary denies any dysuria frequency or hematuria musculoskeletal denies any joint pain or swelling neuropsych denies any weakness or seizures all other systems reviewed are negative Constitutional: Constitutional: Reports body ache(s) and Reports malaise Psychiatric: Psychiatric: Reports abnormal sleep pattern, Reports anxiety and Denies depression PMFSH Past Medical History Medical History Alcohol abuse HTN (hypertension) Opiate addiction Family History Pertinent family history: mother and father with AUD Social History Social History (Updated 12/14/20 @ 16:12 by Carmen Arias CNP) Household Members: Spouse Housing: Apartment Do you presently have visiting nurse or other home services: No Alcohol intake: current Alcohol intake frequency: 3 or more drinks per day Alcohol type: hard liquor Smoking Status: Former smoker Use of substances other than those prescribed or required for medical reasons: Yes Substance Use Type: Crack/Cocaine, Heroin and Opiates Substance Use Frequency: Daily Currently Displaying Signs/Symptoms of Drug Intoxication Withdrawal: No Have you been hit, kicked, punched, or otherwise hurt by someone within the past year? If so, by whom?: No Do you feel safe in your current relationship?: Yes Is there a partner from a previous relationship who is making you feel unsafe now?: No Are you made to feel afraid or neglected: No Advance Directives: No Advance Directives Information Provided: No Do you have thoughts of harming others: None Do you have a plan to hurt others: No Plan Recently lost weight without trying: No service: No Current occupational status: unemployed Meds Allergies Allergy/AdvReac Type Severity Reaction Status Date / Time No Known Allergies Allergy Verified 12/13/20 14:36 Active Medications: Current Medications Generic Name Dose Route Start Last Admin Trade Name Freq PRN Reason Stop Dose Admin Acetaminophen 650 mg 12/13/20 17:59 12/14/20 04:42 Acetaminophen 325 Mg Tablet PO 650 mg Q6H PRN Administration Pain, Mild (Pain Scale 1-3) Amlodipine Besylate 10 mg 12/15/20 09:00 12/15/20 08:05 Amlodipine Besylate 5 Mg Tablet PO 10 mg DAILY MICH Administration Protocol Enoxaparin Sodium 40 mg 12/13/20 18:45 12/14/20 17:35 Enoxaparin Sodium 40 Mg/0.4 Ml Syringe SUBCUT 40 mg Q24H MICH Administration Hydromorphone HCl 1 mg 12/14/20 16:23 12/15/20 08:05 Hydromorphone Hcl 1 Mg/Ml Syringe IVPUSH 1 mg Q4H PRN Administration severe pain Hydroxyzine HCl 50 mg 12/14/20 17:26 12/15/20 05:32 Hydroxyzine Hcl 50 Mg Tablet PO 50 mg Q6H PRN Administration anxiety Lactated Ringer's 1,000 mls @ 200 mls/hr 12/13/20 18:00 12/15/20 05:32 Lr IVCONT 200 mls/hr .Q5H MICH Administration Medication 1 each 12/13/20 17:45 No Benzodiazepines MISCELLANE DAILY MICH Melatonin 6 mg 12/13/20 21:48 12/14/20 21:47 Melatonin 3 Mg Tablet PO 6 mg BEDTIME PRN Administration Insomnia Oxycodone HCl 10 mg 12/14/20 11:11 12/15/20 08:18 Oxycodone Hcl Immed Release 5 Mg Tablet PO 10 mg Q6H PRN Administration Pain, Severe (Pain Scale 7-10) Phenobarbital 45 mg 12/14/20 09:00 12/15/20 08:05 Phenobarbital 15 Mg Tablet PO 12/15/20 21:01 45 mg BID MICH Administration Phenobarbital 15 mg 12/16/20 09:00 Phenobarbital 15 Mg Tablet PO 12/17/20 21:01 BID MICH Phenobarbital 15 mg 12/18/20 09:00 Phenobarbital 15 Mg Tablet PO 12/19/20 09:01 DAILY MICH Sodium Chloride 3 ml 12/14/20 00:00 12/15/20 08:05 0.9 % Sodium Chloride Flush 3 Ml Syringe IVFLUSH 3 ml QSHIFT MICH Administration Home Medications Medication Instructions Recorded Confirmed Last Taken Type No Known Home Meds 12/13/20 12/13/20 Unknown History Physical Exam Vital Signs: Vital Signs: Last Vital Signs Temp 98.2 F 12/15/20 07:32 Pulse 84 12/15/20 07:32 Resp 19 12/15/20 07:32 BP 179/90 H 12/15/20 07:32 Pulse Ox 98 12/15/20 07:32 Body Mass Index 38.6 Const: General: cooperative HENMT: Head: Yes normal to inspection Eyes: General: appearance normal, both eyes and all related structures Neck: Neck: Yes normal visual inspection Chest: Chest palpation & inspection: normal inspection of the chest Resp: Effort & Inspection: normal respiratory effort, able to speak in complete sentences and no use of accessory muscles Cardio: Jugular venous distension: no JVD Rate: regular rate Rhythm: regular rhythm Heart sounds: S1 normal heart sound present and S2 normal heart sound present GI: Inspection: Yes normal to inspection Palpation (GI): Soft to palpation and Tenderness to palpation present (GI) in the epigastrum Skin: Lesions: no lesions Neuro: Cranial nerves: Yes CN's II-XII intact bilaterally Extrem: General: Yes normal to inspection Psych: Appearance: grossly normal Results Labs CBC & Chem 7: 12/16/20 06:46 12/16/20 06:46 Labs: Short CBC 12/15/20 Range/Units 06:41 WBC 24.5 H (4.8-10.8) X10*3/uL Hgb 16.4 H (12.0-16.0) g/dl Hct 47.8 H (37-47) % Plt Count 112 L (160-400) X10*3/uL BMP 12/15/20 06:41 Sodium 132 L Potassium 3.4 Chloride 93 L Carbon Dioxide 27 BUN 5 L Creatinine 0.70 Calcium 9.0 D Liver Function 12/15/20 Range/Units 06:41 Total Bilirubin 2.2 H (0.0-1.0) mg/dL AST 28 (5-31) U/L ALT 26 (0-31) U/L Alkaline Phosphatase 93 D (39-117) U/L Albumin 4.1 (3.5-5.0) g/dL Microbiology Microbiology Results: Microbiology 12/13/20 15:51 Blood - Venous Blood Culture - Preliminary No growth after 24 hours. 12/13/20 15:10 Blood - Venous Blood Culture - Preliminary No growth after [address] scan - abdomen: Attestation: I personally reviewed and interpreted this imaging study as follows: My impression: pancreatitis, mass effect Assessment and Plan (1) Pancreatitis: Qualifiers: Acute pancreatitis complication: unspecified Chronicity: acute Pancreatitis type: alcohol induced Qualified Code(s): K85.20 - Alcohol induced acute pancreatitis without necrosis or infection Status: Acute 1/ Acute interstitial pancreatitis, with some pressure on adjacent vessels but no thrombus noted. Most likely etiology is alcohol. There is no literature to guide on prevention of clot in this circumstance, there may be a chance of hemorrhagic pancreatitis with therapeutic anti coagulation, at this point given there is no SMV or SMA clot would hold PLAN: 1/ Fluids sourav LR as doing with aggressive hydration 2/ pain relief and analgesia 3/ advance diet as tolerated 4/ if pain worsens then repeat imaging to exclude SMA thrombus 5/ prophylactic anticoagulation is fine 6/ US abdo to/ r/o GB stones 7/ O/P MRI pancreas in 6-8 weeks 8/halfway alcohol abstinence 9/ multivitamins and B compounds 10/ trental 400 mg TID may help reduce severity of acute pancreatitis, ok to give
--- NOTE | 2020-12-15 10:29 | HO.PM.IMPN ---
Subjective Subjective Date of Service: 12/15/20 Interval History: worsening pain overnight; had repeat CT scan no fever, nausea, or vomiting Physical Exam Vital Signs: Vital Signs: Last Vital Signs Temp 98.2 F 12/15/20 07:32 Pulse 84 12/15/20 07:32 Resp 19 12/15/20 07:32 BP 179/90 H 12/15/20 07:32 Pulse Ox 98 12/15/20 07:32 Body Mass Index 38.6 Gen: in pain HEENT: sclera anicteric, moist mucus membranes Neck: supple Lungs: clear to auscultation bilaterally Heart: regular rate and rhythm, no murmurs Abd: soft, markedly tender epigastrium Ext: no edema Skin: warm/well-perfused Neuro: alert and oriented x3, no focal findings Psych: appropriate affect Objective Data Current Medications Generic Name Dose Route Start Last Admin Trade Name Freq PRN Reason Stop Dose Admin Acetaminophen 650 mg 12/13/20 17:59 12/14/20 04:42 Acetaminophen 325 Mg Tablet PO 650 mg Q6H PRN Administration Pain, Mild (Pain Scale 1-3) Amlodipine Besylate 10 mg 12/15/20 09:00 12/15/20 08:05 Amlodipine Besylate 5 Mg Tablet PO 10 mg DAILY MICH Administration Protocol Enoxaparin Sodium 40 mg 12/13/20 18:45 12/14/20 17:35 Enoxaparin Sodium 40 Mg/0.4 Ml Syringe SUBCUT 40 mg Q24H MICH Administration Hydromorphone HCl 1 mg 12/15/20 10:26 Hydromorphone Hcl 1 Mg/Ml Syringe IVPUSH Q2H PRN severe pain Hydroxyzine HCl 50 mg 12/14/20 17:26 12/15/20 05:32 Hydroxyzine Hcl 50 Mg Tablet PO 50 mg Q6H PRN Administration anxiety Lactated Ringer's 1,000 mls @ 200 mls/hr 12/13/20 18:00 12/15/20 05:32 Lr IVCONT 200 mls/hr .Q5H MICH Administration Medication 1 each 12/13/20 17:45 No Benzodiazepines MISCELLANE DAILY MICH Melatonin 6 mg 12/13/20 21:48 12/14/20 21:47 Melatonin 3 Mg Tablet PO 6 mg BEDTIME PRN Administration Insomnia Oxycodone HCl 10 mg 12/14/20 11:11 12/15/20 08:18 Oxycodone Hcl Immed Release 5 Mg Tablet PO 10 mg Q6H PRN Administration Pain, Severe (Pain Scale 7-10) Pentoxifylline 400 mg 12/15/20 15:00 Pentoxifylline Er 400 Mg Tablet.Er PO 12/22/20 09:01 TID [facility] Phenobarbital 45 mg 12/14/20 09:00 12/15/20 08:05 Phenobarbital 15 Mg Tablet PO 12/15/20 21:01 45 mg BID MICH Administration Phenobarbital 15 mg 12/16/20 09:00 Phenobarbital 15 Mg Tablet PO 12/17/20 21:01 BID [facility] Phenobarbital 15 mg 12/18/20 09:00 Phenobarbital 15 Mg Tablet PO 12/19/20 09:01 DAILY [facility] Sodium Chloride 3 ml 12/14/20 00:00 12/15/20 08:05 0.9 % Sodium Chloride Flush 3 Ml Syringe IVFLUSH 3 ml QSHIFT [facility] Administration Labs CBC & Chem 7: 12/15/20 06:41 12/15/20 06:41 Labs: Laboratory Results - last 24 hr 12/15/20 12/15/20 06:41 06:41 WBC 24.5 H RBC 5.32 Hgb 16.4 H Hct 47.8 H MCV 89.8 MCH 30.8 MCHC 34.3 RDW 12.8 Plt Count 112 L MPV 14.1 H Immature Gran % (Auto) 1.1 H Neut % (Auto) 92.4 H Lymph % (Auto) 2.6 L [place] % (Auto) 3.7 Eos % (Auto) 0.0 Baso % (Auto) 0.2 Lymph # (Auto) 0.6 L [place] # (Auto) 0.9 Eos # (Auto) 0.0 Baso # (Auto) 0.0 Abs Immat Gran (auto) 0.26 H Absolute Neuts (auto) 22.7 H Absolute Nucleated RBC 0.000 Nucleated RBC % (auto) 0.0 Smear Tech's Comments VERIFIED Sodium 132 L Potassium 3.4 Chloride 93 L Carbon Dioxide 27 Anion Gap 15 BUN 5 L Creatinine 0.70 Estim Creat Clear Calc 128.1 Estimated GFR > 60 Random Glucose 137 H Calcium 9.0 D Total Bilirubin 2.2 H AST 28 ALT 26 Alkaline Phosphatase 93 D Total Protein 7.5 Albumin 4.1 Impressions Abdomen/Pelvis CT 12/15/20 02:39 IMPRESSION: Acute pancreatitis with increased peripancreatic inflammatory changes with the prior. There is increased mass effect on the portal vasculature with mild narrowing of the SMV, main portal vein, and splenic vein around the portosplenic confluence. No thrombosis or occlusion. Hepatic steatosis. Microbiology Microbiology Results: Microbiology 12/13/20 15:51 Blood - Venous Blood Culture - Preliminary No growth after 24 hours. 12/13/20 15:10 Blood - Venous Blood Culture - Preliminary No growth after 24 hours. Assessment and Plan (1) Pancreatitis: Status: Acute Assessment and Plan: hospital d#3 45yo F with hx EtOH + heroin abuse admitted for 1st episode of acute pancreatitis # EtOH pancreatitis, acute alcoholic - 1 [place]'s criterion (fluid requirement). repeat CT with worsening inflammation and mass effect on portal vasculature but no occulsion or thrombus; discussed with GI Dr Ibarra- no therapeutic anticoagulation indicated; will give pentoxyfilline 400mg tid # EtOH abuse with high risk for withdrawal - phenobarbital taper, vitamins, counseling # HTN urgency - increase amlodipine to 10 mg daily # opioid abuse - psychiatry consulted re: Suboxone/MAT initiation once pancreatitis subsides # VTE ppx - LMWH
--- NOTE | 2020-12-15 12:13 | MHC.RECOVRN ---
T/w met with pt in 377 to follow up after pt met with Carmen Arias APRN yesterday. Pt is feeling hopeful in regards to beginning Suboxone when it is appropriate. Pt is currently experiencing a significant amount of pain and is unable to fully engage in conversation. T/w informed pt that t/w will continue to follow.
[2020-12-15] MEDS: Pentoxifylline ER 400 MG TABLET.ER PO ×2 (14:47→21:20)
[2020-12-15 15:12] VITALS: BP 169/87; PULSE 87; RESP 18; TEMP 36.2; O2SAT 97
[2020-12-15] MEDS: Enoxaparin Sodium 40 MG/0.4 ML SYRINGE SUBCUT (18:31)
[2020-12-15] MEDS: Melatonin 3 MG TABLET 6 MG PO (21:20)
[2020-12-15 23:19] VITALS: BP 184/91; PULSE 81; RESP 16; TEMP 36.2; O2SAT 98
[2020-12-16] MEDS: HYDROmorphone HCl 1 MG/ML SYRINGE IVPUSH ×10 (00:41→23:41)
[2020-12-16] MEDS: hydrOXYzine HCL 50 MG TABLET PO ×2 (01:56→08:54)
[2020-12-16] MEDS: Lactated Ringers 1,000 ML 200 ML IVCONT ×3 (01:58→16:23)
[2020-12-16] MEDS: oxyCODONE HCl Immed Release 5 MG TABLET 10 MG PO ×4 (02:49→23:46)
[2020-12-16 07:06] LABS: Basophils Percent Auto 0.1 % (0-2); Hematocrit 45.5 % (37-47); Imm Gran Abs Auto 0.25 X10*3/uL (0.00-0.03); Imm Gran Pct Auto 1.1 % (0.0-0.4); Lymphocytes Absolute Auto 0.9 X10*3/uL (1.2-4.9); Lymphocytes Percent Auto 4.3 % (20-40); MANUAL DIFF FLAG SCAN; Mean Corpuscular HGB Conc 35.2 g/dl (31.0-35.0); Mean Corpuscular Hemoglobin 31.1 pg (27.0-33.0); Mean Corpuscular Volume 88.3 fL (80-98); Monocytes Absolute Auto 1.1 X10*3/uL (0.1-1.2); Monocytes Percent Auto 5.2 % (2-11); Neutrophils Absolute Auto 19.7 X10*3/uL (2.0-8.3); Neutrophils Percent Auto 89.3 % (45-73); PLT CLUMP 1; Red Blood Count 5.15 X10*6/uL (4.20-5.50); Red Cell Distribution Width 12.6 % (11.0-16.0); SCAN SMEAR FLAG 1
[2020-12-16 07:17] VITALS: BP 176/93; PULSE 90; RESP 19; TEMP 36.8; O2SAT 96
[2020-12-16] MEDS: 0.9 % Sodium Chloride Flush 3 ML SYRINGE IVFLUSH ×3 (07:27→20:46)
[2020-12-16] MEDS: amLODIPine Besylate 5 MG TABLET 10 MG PO (07:30)
[2020-12-16] MEDS: Pentoxifylline ER 400 MG TABLET.ER PO ×3 (07:30→20:46)
[2020-12-16] MEDS: PHENobarbitaL 15 MG TABLET PO ×2 (07:30→20:46)
[2020-12-16 07:44] LABS: Platelet Count 105 X10*3/uL (160-400)
[2020-12-16 07:45] LABS: SLIDE REVIEW VERIFIED
[2020-12-16 07:46] LABS: Anion Gap 15 (12-20); Blood Urea Nitrogen 9 mg/dL (9-16); Calcium 8.6 mg/dL (8.4-10.2); Carbon Dioxide 27 mmol/L (22-29); Chloride 92 mmol/L (96-108); Cholesterol 210 mg/dL; Creatinine Clr Calc Pharmacy 135.9; Estimated Glomerular Filt Rate > 60; Glucose Random 115 mg/dL (60-115); HDL Cholesterol 75 mg/dL; LDL Cholesterol Calculated 118 mg/dl; Potassium 3.1 mmol/L (3.3-5.1); Sodium 131 mmol/L (135-145); Triglycerides 89 mg/dL
[2020-12-16 08:53] LABS: HBsAGNum1 0.13 S/CO (0.00-0.99); HIV AB/AG Nonreactive (Nonreactive); HIV Num 1 0.06 S/CO (0.00-0.99); Hepatitis B Surface Antigen Negative (Negative)
[2020-12-16 09:29] LABS: Magnesium 1.9 mg/dL (1.6-2.6)
[2020-12-16 09:35] LABS: HBS Num1 4.58 mIU/mL (0-7.99); HBc Num1 0.06 S/CO (0.00-0.79); Hepatitis B Core Antibody Nonreactive (Nonreactive); ~HepC Num1 0.13 S/CO (0.00-0.79); ~Hepatitis B Surface Antibody NONREACTIVE (Nonreactive); ~Hepatitis C Antibody Nonreactive (Nonreactive)
[2020-12-16] MEDS: Potassium Chloride/H20 10 MEQ/100 ML PIGGYBACK 100 MEQ IV ×2 (09:37→11:06)
[2020-12-16] MEDS: lisinopriL 5 MG TABLET PO (09:37)
--- NOTE | 2020-12-16 12:55 | P.PNIM_ITS ---
Subjective Subjective Date of Service: 12/16/20 Interval History: abd pain improved no fever Physical Exam Vital Signs: Vital Signs: Last Vital Signs Temp 98.2 F 12/16/20 07:17 Pulse 90 12/16/20 07:17 Resp 19 12/16/20 07:17 BP 176/93 H 12/16/20 07:17 Pulse Ox 96 12/16/20 07:17 Body Mass Index 38.6 Gen: in pain HEENT: sclera anicteric, moist mucus membranes Neck: supple Lungs: clear to auscultation bilaterally Heart: regular rate and rhythm, no murmurs Abd: soft, tender Ext: no edema Skin: warm/well-perfused Neuro: alert and oriented x3, no focal findings Psych: appropriate affect Objective Data Current Medications Generic Name Dose Route Start Last Admin Trade Name Freq PRN Reason Stop Dose Admin Acetaminophen 650 mg 12/13/20 17:59 12/14/20 04:42 Acetaminophen 325 Mg Tablet PO 650 mg Q6H PRN Administration Pain, Mild (Pain Scale 1-3) Amlodipine Besylate 10 mg 12/15/20 09:00 12/16/20 07:30 Amlodipine Besylate 5 Mg Tablet PO 10 mg DAILY MICH Administration Protocol Enoxaparin Sodium 40 mg 12/13/20 18:45 12/15/20 18:31 Enoxaparin Sodium 40 Mg/0.4 Ml Syringe SUBCUT 40 mg Q24H MICH Administration Hydromorphone HCl 1 mg 12/15/20 10:26 12/16/20 11:39 Hydromorphone Hcl 1 Mg/Ml Syringe IVPUSH 1 mg Q2H PRN Administration severe pain Hydroxyzine HCl 50 mg 12/14/20 17:26 12/16/20 08:54 Hydroxyzine Hcl 50 Mg Tablet PO 50 mg Q6H PRN Administration anxiety Lactated Ringer's 1,000 mls @ 200 mls/hr 12/13/20 18:00 12/16/20 12:51 Lr IVCONT 200 mls/hr .Q5H MICH Infusion Lisinopril 5 mg 12/16/20 09:00 12/16/20 09:37 Lisinopril 5 Mg Tablet PO 5 mg DAILY MICH Administration Protocol Medication 1 each 12/13/20 17:45 No Benzodiazepines MISCELLANE DAILY MICH Melatonin 6 mg 12/13/20 21:48 12/15/20 21:20 Melatonin 3 Mg Tablet PO 6 mg BEDTIME PRN Administration Insomnia Oxycodone HCl 10 mg 12/14/20 11:11 12/16/20 08:54 Oxycodone Hcl Immed Release 5 Mg Tablet PO 10 mg Q6H PRN Administration Pain, Severe (Pain Scale 7-10) Pentoxifylline 400 mg 12/15/20 15:00 12/16/20 07:30 Pentoxifylline Er 400 Mg Tablet.Er PO 12/22/20 09:01 400 mg TID MICH Administration Phenobarbital 15 mg 12/16/20 09:00 12/16/20 07:30 Phenobarbital 15 Mg Tablet PO 12/17/20 21:01 15 mg BID MICH Administration Phenobarbital 15 mg 12/18/20 09:00 Phenobarbital 15 Mg Tablet PO 12/19/20 09:01 DAILY MICH Sodium Chloride 3 ml 12/14/20 00:00 12/16/20 07:27 0.9 % Sodium Chloride Flush 3 Ml Syringe IVFLUSH 3 ml QSHIFT MICH Administration Labs CBC & Chem 7: 12/16/20 06:46 12/16/20 06:46 Microbiology Microbiology Results: Microbiology 12/13/20 15:51 Blood - Venous Blood Culture - Preliminary No growth after 48 hours. 12/13/20 15:10 Blood - Venous Blood Culture - Preliminary No growth after 48 hours. Assessment and Plan (1) Pancreatitis: Status: Acute Assessment and Plan: hospital d#4 45yo F with hx EtOH + heroin abuse admitted for 1st episode of acute pancreat itis # EtOH pancreatitis, acute alcoholic - 1 [place]'s criterion (fluid requirement). repeat CT with worsening inflammation and mass effect on portal vasculature but no occulsion or thrombus; discussed with GI Dr Ibarra- no therapeutic anticoagulation indicated; continue pentoxyfilline 400mg tid # EtOH abuse with high risk for withdrawal - phenobarbital taper, vitamins, counseling # HTN urgency - continue amlodipine, add lisinopril # opioid abuse - psychiatry consulted re: Suboxone/MAT initiation once pancreatitis subsides # VTE ppx - LMWH
--- NOTE | 2020-12-16 12:56 | MHC.CM.PN ---
Addendum entered by Caty wOens RN 12/16/20 13:06: CM WILL CONT TO FOLLOW FOR D/C NEEDS. Original Note: EMR REVIEWED, CM MET WITH PT TO FOLLOW-UP WITH PROGRESS WITH HER INSURANCE, PT REPORTS SHE HAS NOT CALLED TO MAKE PAYMENT DUE TO NOT HAVING HER CARDS WITH HER, WHEN PT ASKED IF SOMEONE COULD BRING THEM, PT STATES, MY DOESN'T DRIVE WHEN ASKED IF A FRIEND OR ANOTHER FAMILY MEMBER COULD BRING IT IN PT DENIES HAVING ANY OTHER PERSON TO ASSIST, WHEN CM ASKED IF HER COULD CALL IN FOR PT INSISTS HE CANNOT, PT DOES REPORT SHE WILL MAKE THE PAYMENT BEFORE DECEMBER 21, 2020 WHICH SHE REPORTS IS THE DEADLINE TO START THE INSURANCE RETROACTIVELY FROM November. PT REINFORCES SHE WILL DO THIS SOON SHE GOES HOME AND REPORTS SHE WAS TOLD THE COST IS $46 A MONTH, PT IS AWARE THAT SHE NEEDS TO CHOOSE A PCP SOON SHE MAKES THE PAYMENT AND GIVES HER A POLICY ID NUMBER. PT DOES REPORT SHE WANTS TO GET BACK ON MEDICATION AND BE ABLE TO SEE A DOCTOR AGAIN. PT ONCE AGAIN ENCOURAGED TO REACH OUT TO A FRIEND OR FAMILY MEMBER FOR ASSISTANCE, PT CONTINUES TO DENY HAVING ANYONE. ERICK
--- NOTE | 2020-12-16 14:01 | MHC.CM.PN ---
CM MET WITH PT TO GIVE HER BROCHURE WITH [facility] INCLUDING PRIMARY CARE PROVIDERS SO PT CAN CHOSE A PCP ONCE INSURANCE IS FINALIZED, PT DID REPORT TO CM THAT SHE WOULD CALL TO MAKE PAYMENT AND INITIATE INSURANCE WHEN SHE IS DISCHARGED. ANTICIPATED D/C 12/17 HOME SELF-CARE, MAY NEED SHUTTLE/TRANSPORT HOME.
[2020-12-16 15:50] VITALS: BP 176/92; PULSE 108; RESP 19; TEMP 36.1; O2SAT 98
[2020-12-16] MEDS: Enoxaparin Sodium 40 MG/0.4 ML SYRINGE SUBCUT (18:22)
[2020-12-16] MEDS: traZODone HCL 50 MG TABLET PO (20:46)
[2020-12-16 23:54] VITALS: BP 169/85; PULSE 94; RESP 18; TEMP 36.4; O2SAT 98
[2020-12-17] MEDS: HYDROmorphone HCl 1 MG/ML SYRINGE IVPUSH ×3 (02:51→08:27)
[2020-12-17 07:07] LABS: Basophils Percent Auto 0.2 % (0-2); Eosinophils Percent Auto 0.1 % (0-4); Hematocrit 47.2 % (37-47); Hemoglobin 16.5 g/dl (12.0-16.0); Imm Gran Abs Auto 0.13 X10*3/uL (0.00-0.03); Imm Gran Pct Auto 0.8 % (0.0-0.4); Lymphocytes Percent Auto 5.8 % (20-40); MANUAL DIFF FLAG SCAN; Mean Corpuscular Hemoglobin 31.1 pg (27.0-33.0); Mean Corpuscular Volume 89.1 fL (80-98); Monocytes Percent Auto 5.9 % (2-11); Neutrophils Percent Auto 87.2 % (45-73); PLT CLUMP 1; Red Cell Distribution Width 12.7 % (11.0-16.0); SCAN SMEAR FLAG 1
[2020-12-17 07:22] LABS: Anion Gap 15 (12-20); Blood Urea Nitrogen 9 mg/dL (9-16); Calcium 8.5 mg/dL (8.4-10.2); Carbon Dioxide 25 mmol/L (22-29); Chloride 93 mmol/L (96-108); Estimated Glomerular Filt Rate > 60; Glucose Random 122 mg/dL (60-115); Potassium 3.1 mmol/L (3.3-5.1); Sodium 130 mmol/L (135-145)
[2020-12-17 07:42] LABS: Platelet Count 117 X10*3/uL (160-400); White Blood Count 17.2 X10*3/uL (4.8-10.8)
[2020-12-17 07:43] LABS: SLIDE REVIEW VERIFIED
[2020-12-17 07:57] VITALS: BP 154/98; PULSE 102; RESP 16; TEMP 35.8; O2SAT 95
[2020-12-17] MEDS: Potassium Chloride/H20 10 MEQ/100 ML PIGGYBACK 100 MEQ IV ×2 (08:25→09:33)
[2020-12-17 08:26] VITALS: BP 154/98; PULSE 102
[2020-12-17] MEDS: lisinopriL 10 MG TABLET PO (08:26)
[2020-12-17] MEDS: Pentoxifylline ER 400 MG TABLET.ER PO ×2 (08:26→16:17)
[2020-12-17] MEDS: amLODIPine Besylate 5 MG TABLET 10 MG PO (08:26)
[2020-12-17] MEDS: PHENobarbitaL 15 MG TABLET PO (08:26)
[2020-12-17 08:27] VITALS: RESP 18
[2020-12-17] MEDS: 0.9 % Sodium Chloride Flush 3 ML SYRINGE IVFLUSH (08:28)
[2020-12-17] MEDS: Potassium Chloride ER 20 MEQ TAB.ER.PRT 40 MEQ PO (10:42)
--- NOTE | 2020-12-17 11:36 | MHC.RECOVRN ---
Addendum entered by Nancy Jane 12/17/20 13:04: Appointment time has changed to 3:15PM on 12/23/20. Pt and CM aware. Original Note: Pt has appt at the [facility] on 12/23/20 at 2:15PM to follow up for MOUD. CM aware.
--- NOTE | 2020-12-17 12:25 | MHC.CM.PN ---
NURSE PROGRAM PROPOSALS COORDINATOR NOTE ELECTRONIC MEDICAL RECORD REVIEWED ALONG WITH CASE DISCUSSED WITH STAFF NURSE nd hospitalist met with patient DISCHARGE PLAN HOME 1.renetta dominguez has made appointment for her at the [facility] -COMPREHENSIVE CARE PROGRAM, FOR DECEMBER 23 AT 2;15PM [facility] , 4TH FLOOR [address] [facility] [employer] NET INSURANCES, PLEASE CALL /OR GO ON LINE FOR PREMIUM PAYMENT (THIS NEEDS TO BE DONE BY DECEMBER 21 2020 BEFORE 6PM )IF YOU HAVE ANY DIFFICULTY PLEASE CALL [facility] FINANCIAL COUNSELORS [phone] OR [phone] MADE AND THEY WILL ASSIGN YOU ID AND POLICY NUMBER ONCE YOU HAVE A INSURANCE NUMBER AND ID NAME .CALL THE INSURANCE LIST A PRIMARY CARE PHYSICIAN ,ANF THEN CALL AND MAKE APPOINTMENT
--- NOTE | 2020-12-17 13:33 | PM.DS ---
DS: Providers Provider Date of Service: 12/17/20 Date of admission: 12/13/20 17:59 Primary care physician: Sarah Mary MD Consults: 12/13/20 17:59 Consult to [facility] Routine Consulting Provider: Irma Hess Reason for consultation: heroin abuse, interested in suboxone Has provider been notified: No 12/14/20 08:14 Consult to Care Team Routine Comment: Reason for consultation: etoh + heroin 12/15/20 03:17 Consult to Gastroenterology Routine Consulting Provider: Erica Ibarra Reason for consultation: Worsening pancreatitis DS: Diagnosis Discharge Diagnosis (1) Pancreatitis: Status: Acute (2) Opioid use disorder: Status: Acute (3) Alcohol abuse with alcohol-induced disorder: Status: Acute (4) Hypokalemia: Status: Acute (5) Hypertensive urgency: Status: Acute DS: Medications Discharge Medications Home Medications: Home Medications Medication Instructions Recorded Confirmed No Known Home Meds 12/13/20 12/13/20 DS: Summary Hospital Course Hospital Course: from admission history and physical by hospitalist Elenita Hernández, 12/13/20: 45-year-old woman presented to the ER complaints of abdominal pain that started yesterday. She reports that her symptoms started abruptly. She did have some nausea and an episode vomiting today. She reports that she drinks 3-4 glasses whiskey a day and uses 1 bundle of heroin day. She denied fever, chills, diarrhea. She denies any history of pancreatitis in the past. In the ER, abdominal CT showed acute pancreatitis with a liver. AST 61, ALT 48, lipase 1254. COVID negative. in the ER she was started on phenobarbital protocol, given 1 g of IV magnesium, 2 L of IV fluids, pain medication. Patient will be admitted for further management treatment of acute pancreatitis. The patient was admitted to the medical/surgical floor for low-risk pancreatitis with 1 [place]'s criterion (fluid requirement). Her symptoms improved with fluid hydration and IV hydromorphone and pentoxifylline. Diet was advanced and by the day of discharge, she was tolerating a bland low-fat diet. She was treated for alcohol abuse with high risk for withdrawal using phenobarbital taper. The importance of sobriety from alcohol and opioids was counseled. She was seen by Addiction Medicine and will be seen at the [facility] on 12/23/20 for Suboxone initiation. She was discharged with 10 tablets of hydrocodone/APAP 10/325 mg for severe pain in the meanwhile. In terms of hypertension, she was started on amlodipine and lisinopril and should follow a low-sodium diet. Time Spent with Patient Time attestation: Total time spent providing and/or coordinating discharge services: 45 Discharge coordination time: Greater than 30 minutes Physical Exam Vital Signs: Vital Signs: Last Vital Signs Temp 96.5 F L 12/17/20 07:57 Pulse 102 H 12/17/20 08:26 Resp 18 12/17/20 08:27 BP 154/98 H 12/17/20 08:26 Pulse Ox 95 12/17/20 07:57 Body Mass Index 38.6 Gen: in no acute distress HEENT: sclera anicteric, moist mucus membranes Neck: supple Lungs: clear to auscultation bilaterally Heart: regular rate and rhythm, no murmurs Abd: soft, minimally tender, non-distended Ext: no edema Skin: warm/well-perfused Neuro: alert and oriented x3, no focal findings Psych: appropriate affect DS: Data Data Completed and Pending Completed studies during hospitalization [Text1]: Laboratory Results WBC 17.2 X10*3/uL (4.8-10.8) H 12/17/20 06:34 RBC 5.30 X10*6/uL (4.20-5.50) 12/17/20 06:34 Hgb 16.5 g/dl (12.0-16.0) H 12/17/20 06:34 Hct 47.2 % (37-47) H 12/17/20 06:34 MCV 89.1 fL (80-98) 12/17/20 06:34 MCH 31.1 pg (27.0-33.0) 12/17/20 06:34 MCHC 35.0 g/dl (31.0-35.0) 12/17/20 06:34 RDW 12.7 % (11.0-16.0) 12/17/20 06:34 Plt Count 117 X10*3/uL (160-400) L 12/17/20 06:34 MPV Not Reportable 12/17/20 06:34 Immature Gran % (Auto) 0.8 % (0.0-0.4) H 12/17/20 06:34 Neut % (Auto) 87.2 % (45-73) H 12/17/20 06:34 Lymph % (Auto) 5.8 % (20-40) L 12/17/20 06:34 [place] % (Auto) 5.9 % (2-11) 12/17/20 06:34 Eos % (Auto) 0.1 % (0-4) 12/17/20 06:34 Baso % (Auto) 0.2 % (0-2) 12/17/20 06:34 Lymph # (Auto) 1.0 X10*3/uL (1.2-4.9) L 12/17/20 06:34 [place] # (Auto) 1.0 X10*3/uL (0.1-1.2) 12/17/20 06:34 Eos # (Auto) 0.0 X10*3/uL (0.0-0.4) 12/17/20 06:34 Baso # (Auto) 0.0 X10*3/uL (0.0-0.2) 12/17/20 06:34 Abs Immat Gran (auto) 0.13 X10*3/uL (0.00-0.03) H 12/17/20 06:34 Absolute Neuts (auto) 15.0 X10*3/uL (2.0-8.3) H 12/17/20 06:34 Absolute Nucleated RBC 0.000 X10*3/uL (0.0-0.012) 12/17/20 06:34 Nucleated RBC % (auto) 0.0 /100WBC (0.0-0.2) 12/17/20 06:34 Smear Tech's Comments VERIFIED 12/17/20 06:34 Sodium 131 mmol/L (135-145) L 12/17/20 14:51 Potassium 3.5 mmol/L (3.3-5.1) 12/17/20 14:51 Chloride 95 mmol/L (96-108) L 12/17/20 14:51 Carbon Dioxide 26 mmol/L (22-29) 12/17/20 14:51 Anion Gap 14 (12-20) 12/17/20 14:51 BUN 9 mg/dL (9-16) 12/17/20 14:51 Creatinine 0.67 mg/dL (0.5-1.4) 12/17/20 14:51 Estim Creat Clear Calc 133.9 12/17/20 14:51 Estimated GFR > 60 12/17/20 14:51 Random Glucose 120 mg/dL (60-115) H 12/17/20 14:51 Lactic Acid 3.4 mmol/L (0.5-2.0) H* 12/13/20 15:10 Lactic Acid Fup @ 2Hr 2.6 mmol/L (0.5-2.0) H* 12/13/20 17:30 Lactic Acid Fup @ 4Hr 2.6 mmol/L (0.5-2.0) H* 12/13/20 19:48 Calcium 8.5 mg/dL (8.4-10.2) 12/17/20 14:51 Magnesium 1.9 mg/dL (1.6-2.6) 12/16/20 06:46 Total Bilirubin 2.2 mg/dL (0.0-1.0) H 12/15/20 06:41 Direct Bilirubin 0.5 mg/dL (0.0-0.5) 12/14/20 07:10 AST 28 U/L (5-31) 12/15/20 06:41 ALT 26 U/L (0-31) 12/15/20 06:41 Alkaline Phosphatase 93 U/L (39-117) D 12/15/20 06:41 Lactate Dehydrogenase 150 U/L (122-220) 12/13/20 15:10 C-Reactive Protein 24.10 mg/dL (< or = 0.50) H 12/17/20 06:34 Total Protein 7.5 g/dL (6.5-8.0) 12/15/20 06:41 Albumin 4.1 g/dL (3.5-5.0) 12/15/20 06:41 Triglycerides 89 mg/dL 12/16/20 06:46 Cholesterol 210 mg/dL 12/16/20 06:46 LDL Cholesterol, Calc 118 mg/dl 12/16/20 06:46 HDL Cholesterol 75 mg/dL 12/16/20 06:46 Lipase 1254 U/L (8-78) H 12/13/20 15:10 Urine Color COLORLESS 12/13/20 17:05 Urine Appearance CLEAR 12/13/20 17:05 Urine pH 8.0 (5.0-8.0) 12/13/20 17:05 Ur Specific [place] 1.015 (1.005-1.025) 12/13/20 17:05 Urine Protein NEG MG/DL (NEG-TRACE) 12/13/20 17:05 Urine Glucose (UA) NEG MG/DL (NEG) 12/13/20 17:05 Urine Ketones NEG MG/DL (NEG) 12/13/20 17:05 Urine Blood NEG (NEG) 12/13/20 17:05 Urine Nitrite NEG (NEG) 12/13/20 17:05 Ur Leukocyte Esterase NEG (NEG) 12/13/20 17:05 Urine Opiates Screen Not Detected (Not Detect) 12/13/20 17:05 Ur Barbiturates Screen Not Detected (Not Detect) 12/13/20 17:05 Ur Phencyclidine Scrn Not Detected (Not Detect) 12/13/20 17:05 Ur Amphetamines Screen Not Detected (Not Detect) 12/13/20 17:05 U Benzodiazepines Scrn Not Detected (Not Detect) 12/13/20 17:05 Urine Cocaine Screen POSITIVE (Not Detect) H 12/13/20 17:05 U Marijuana (THC) Screen Not Detected (Not Detect) 12/13/20 17:05 Ethyl Alcohol < 10 mg/dL 12/13/20 15:10 COVID-19 (JUAN) Negative (Negative) 12/13/20 17:08 COVID-19 Clin Com See Note 12/13/20 17:08 Hep Bs Antigen Negative (Negative) 12/16/20 06:46 Hep Bs Antibody NONREACTIVE (Nonreactive) 12/16/20 06:46 Hep B Core Total Ab Nonreactive (Nonreactive) 12/16/20 06:46 Hepatitis C Ab (EIA) Nonreactive (Nonreactive) 12/16/20 06:46 HIV 1&2 Ab/P24 Ag 4thGn Nonreactive (Nonreactive) 12/16/20 06:46 Impressions Abdomen/Pelvis CT 12/15/20 02:39 IMPRESSION: Acute pancreatitis with increased peripancreatic inflammatory changes with the prior. There is increased mass effect on the portal vasculature with mild narrowing of the SMV, main portal vein, and splenic vein around the portosplenic confluence. No thrombosis or occlusion. Hepatic steatosis. Discharge Plan Discharge Anticipated Discharge Date/Time: 12/17/20 16:00 Patient Disposition: Home, Self-Care Referrals: [facility] [Other] Sarah Mary MD [Primary Care Provider] - Discharge Medications: New hydrocodone-acetaminophen 10-325 mg tablet 1 tab PO Q8H PRN (Reason: severe pain (scale score 7-10)) Qty: 10 RF: 0 amlodipine 5 mg Tablet 10 mg PO DAILY Qty: 30 RF: 0 lisinopril 10 mg Tablet 10 mg PO DAILY Qty: 30 RF: 0 Discharge Orders: Discharge Order (Routine); Ordered 12/17/20 Ordered By: Froylan Miller Diet: low fat, low cholesterol Activity on Discharge: no alcohol Stand Alone Forms: Patient Portal Discharge page Care Plan Goals: sobriety relief of abdominal pain normal blood pressure to avoid cardiovascular complications Health Concerns: opioid and alcohol use disorders pancreatitis hypertension Plan of Treatment: low-fat, bland diet drink plenty of fluids take hydrocodone/APAP for pain control avoid alcohol at all costs. you received treatment with phenobarbital and it will be in your system for severe days. it is very dangerous to drink alcohol with phenobarbital in your system. seek help with sobriety as per community resource list. avoid opioids except for what was prescribed for pain control. keep your appointment for Suboxone initiation with SEQU[facility]INDER Irma Hess on Saturday 12/23 at 2:15pm at: [address], [address] [place] [id number] if for some reason you are unable to reinstate your insurance to cover the 12/23 appointment, you can call the [facility] at ; or after hours your blood pressure was quite high. you have been started on 2 blood pressure medications: amlodipine 10 mg daily plus lisinopril 10 mg daily. please take these and see your primary care doctor in 1 week Patient Instructions: Pancreatitis (DC), Abuse of Alcohol (DC), Narcotic Use Disorder (DC)
[2020-12-17 15:41] LABS: Anion Gap 14 (12-20); Blood Urea Nitrogen 9 mg/dL (9-16); Calcium 8.5 mg/dL (8.4-10.2); Carbon Dioxide 26 mmol/L (22-29); Chloride 95 mmol/L (96-108); Creatinine Clr Calc Pharmacy 133.9; Estimated Glomerular Filt Rate > 60; Glucose Random 120 mg/dL (60-115); Potassium 3.5 mmol/L (3.3-5.1); Sodium 131 mmol/L (135-145)
[2020-12-17] MEDS: oxyCODONE HCl Immed Release 5 MG TABLET 10 MG PO (16:20)
[2020-12-17] MEDS: hydrOXYzine HCL 50 MG TABLET PO (16:20)
== END 2020-12-17 17:11 | disposition home or self-care (01) | DRG 439 ==
LOC: HO.ED 16:20 → HO.EDOVER 20:06 → HO.S3 20:08
PROVIDERS: Nurse Practitioner Acute Care; Physician Assistant; Admitting Provider Family Medicine; Emergency Provider Emergency Medicine; PCP Internal Medicine; Visit Provider Family Medicine
DX: K85.20 Alcohol induced acute pancreatitis without necrosis or infection (principal); F11.20 Opioid dependence, uncomplicated; E87.2 Acidosis; I16.0 Hypertensive urgency; I10 Essential (primary) hypertension; R74.01 Elevation of levels of liver transaminase levels; F10.10 Alcohol abuse, uncomplicated; E66.9 Obesity, unspecified; Z68.38 Body mass index [BMI] 38.0-38.9, adult; Z79.899 Other long term (current) drug therapy
CPT/HCPCS: 36415; 74177; 80048; 80053; 80061; 80076; 80307; 80320; 81003; 83605; 83615; 83690; 83735; 85025; 86140; 86704; 86706; 86803; 87040; 87340; 87389; 87635; 96361; 96372; 96374; 96375; 99285; 99291; J1170; J1650; J2060; J2270; J2560; J3475; Q9967